=== PATIENT | male | born 1965 | race Caucasian/White ===

== ENCOUNTER 2017-03-10 15:07 | Emergency (ER) | payer BC ==
--- NOTE | 2017-03-10 15:56 | ED ---
General Adult HPI - General Stated complaint: Seizure Source: patient, family, RN notes reviewed, old records reviewed Mode of arrival: EMS Limitations: no limitations - History of Present Illness Initial comments: Chief complaint and history of present illness a 51-year-old male who had a 90 second seizure followed by 5 minutes of postictal. The daughter who is his electrician wiring reports that she gave him a soft drink he was in the washroom she heard a noise she found him having a tonic-clonic type clonic type seizure shaking all over as she described in any fell to floor bumping his head. This whole thing lasted 90 seconds. He was sleepy for 5 minutes afterwards. Back to his self at this time. He does have history of schizophrenia. Last time with the seizure was approximately 3 or 4 years ago. He does take Trileptal and has not apparently missed any doses. Has not been sick with nausea vomiting or diarrhea lately. - Related Data Home Medications Medication Instructions Recorded Confirmed LORazepam [Ativan] 1 mg PO TID PRN 03/10/17 03/10/17 Perphenazine [Trilafon] 8 mg PO BID 03/10/17 03/10/17 Perphenazine [Trilafon] 16 mg PO HS 03/10/17 03/10/17 Sertraline [Zoloft] 50 mg PO DAILY 03/10/17 03/10/17 Previous Rx's Medication Instructions Recorded OXcarbazepine [Trileptal] 450 mg PO BID #45 tab 08/24/15 Allergies Allergy/AdvReac Type Severity Reaction Status Date / Time No Known Allergies Allergy Verified 03/10/17 15:40 Review of Systems ROS Statement: Those systems with pertinent positive or pertinent negative responses have been documented in the HPI. Review of systems patient denies headache or visual acuity changes no neck pain no chest pain or shortness of breath no GI/ problems. Emotionally the patient 's very labile and crying immediately and states she does not know why. His daughter who takes care of him at home states he does this often, because of his schizophrenia. All systems reviewed. Past medical problems significant for GERD, prostate disorder and seizure disorder. He takes Trileptal. Patient also has schizophrenia. He takes Artane and perphenazine. The patient's surgeries are none. Family history mother had breast lung cancer. Patient denies ALLERGIES nonsmoker nondrinker. ROS Other: All systems not noted in ROS Statement are negative. Past Medical History Past Medical History: GERD/Reflux, Prostate Disorder, Seizure Disorder History of Any Multi-Drug Resistant Organisms: None Reported Past Surgical History: No Surgical Hx Reported Past Psychological History: Bipolar, Schizophrenia Smoking Status: Former smoker Past Alcohol Use History: Occasional Past Drug Use History: Unable to Obtain General Exam - General Exam Comments Initial Comments: General: The patient is awake and alert, in no distress, and does not appear acutely ill. Patient had a 92nd seizure prior to arrival. Alert and back to his normal self now. He does have schizophrenia and starts crying without any reason which is common for him. Vital signs show temperature 98.5 pulse 104 story rate 20 pulse ox 96% room air blood pressure 151/74. Eye: Pupils are equal, round and reactive to light, extra-ocular movements are intact ; there is normal conjunctiva bilaterally. No signs of icterus. Ears, nose, mouth and throat: There are moist mucous membranes and no oral lesions. Small bruise over her right eye. Neck: The neck is supple, there is no tenderness. Cardiovascular: There is a regular rate and rhythm. No murmur, rub or gallop is appreciated. Respiratory: Lungs are clear to auscultation, respirations are non-labored, breath sounds are equal. No wheezes, stridor, rales, or rhonchi. Gastrointestinal: Soft, non-distended, non-tender abdomen without masses or organomegaly noted. There is no rebound or guarding present. No CVA tenderness. Bowel sounds are unremarkable. Back: There is no tenderness to palpation in the midline. There is no obvious deformity. No rashes noted. Musculoskeletal: Normal ROM, no tenderness, There is no pedal edema. There is no calf tenderness or swelling. Sensation intact. Pulses equal bilaterally 2+. Neurological: CN II-XII intact, There are no obvious motor or sensory deficits. Coordination appears grossly intact. Speech is normal. Skin: Skin is warm and dry and no rashes or lesions are noted. Psychiatric: History of schizophrenia, very labile mood and affect. No change per daughter who takes care of him. Limitations: no limitations Course Vital Signs 03/10/17 03/10/17 15:11 16:33 Temperature 98.5 F Pulse Rate 104 H 74 Respiratory 20 18 Rate Blood Pressure 151/74 127/77 O2 Sat by Pulse 96 95 Oximetry Medical Decision Making - Medical Decision Making Seizure making. Patient's CAT scan was reviewed by radiologist as negative for any acute pathology. As reported by Dr. Borden. Patient still has breakthrough fits of crying which daughter reports are normal for his health issues. He will be given 1 mg Ativan to help control his anxiety. She will call the family doctor tomorrow. The Trileptal is a send out. She was told to call for the final lab results in the next several days to see if the Trileptal level is within normal limits and whatever alterations been be necessary to be done either doctor. Disposition Clinical Impression: Generalized seizure Disposition: HOME SELF-CARE Condition: Stable Additional Instructions: call the emergency room follow-up nurse for the Trileptal level in 2 days. Follow-up with his family physician, call tomorrow for an appointment. Referrals: Chele Marcus III, MD [Primary Care Provider] - 1-2 days Time of Disposition: 18:07
--- NOTE | 2017-03-10 16:33 | CT ---
EXAMINATION TYPE: CT brain wo con DATE OF EXAM: 03/10/2017 COMPARISON: 03/18/2013 HISTORY: Seizure today. History of seizures. CT DLP: 1011.00 mGycm. Automated Exposure Control for Dose Reduction was Utilized. TECHNIQUE: CT scan of the head is performed without contrast. FINDINGS: Ventricles of normal size. There is no mass effect nor midline shift. There is no sign of intracranial hemorrhage. The calvarium is intact. Negative CT scan of the brain. No change compared to old exam..
[2017-03-10 16:34] VITALS: RESP 18
[2017-03-10] MEDS ORDERED: LORazepam 2 MG/ML SYRINGE IV STA (18:04)
[2017-03-10 18:17] VITALS: BP 136/87; PULSE 80; TEMP 98.6
== END 2017-03-10 19:03 | disposition home or self-care (01) ==
LOC: EC 15:07
DX: G40.409 Other generalized epilepsy and epileptic syndromes, not intractable, without status epilepticus (principal); F20.9 Schizophrenia, unspecified; Z87.891 Personal history of nicotine dependence; Z79.899 Other long term (current) drug therapy
CPT/HCPCS: 99285; 96374; 70450; J2060

== ENCOUNTER 2017-12-29 12:20 | Inpatient (IN) | payer BC ==
--- NOTE | 2017-12-29 12:42 | ED ---
Seizure HPI - General Stated Complaint: seizure Time Seen by Provider: 12/29/17 12:27 Source: family, EMS, RN notes reviewed Mode of arrival: EMS - History of Present Illness Initial Comments: This is a 52-year-old male with a history of seizure disorder who apparently was found unresponsive he has bathroom at home. He was in what appear to be a postictal state for about 5 minutes EMS was called he started coming out of it was somewhat combative and uncooperative but has become more cooperative as time progresses he is given his medications by his daughter who is present at this time he has not missed any medications no reports of fevers chills nausea vomiting sweats he did has some apparent nasal pain as well as headache MD Complaint: possible seizure - Related Data Home Medications Medication Instructions Recorded Confirmed LORazepam [Ativan] 1 mg PO TID PRN 03/10/17 07/04/17 Perphenazine [Trilafon] 8 mg PO BID 03/10/17 07/04/17 Perphenazine [Trilafon] 16 mg PO HS 03/10/17 07/04/17 Sertraline [Zoloft] 50 mg PO DAILY 03/10/17 07/04/17 diphenhydrAMINE [Benadryl] 50 mg PO HS PRN 07/04/17 07/04/17 Previous Rx's Medication Instructions Recorded OXcarbazepine [Trileptal] 450 mg PO BID #45 tab 08/24/15 Hydrocodone/Acetaminophen [[place] 1 tab PO Q6HR PRN #20 tab 07/04/17 5-325] Allergies Allergy/AdvReac Type Severity Reaction Status Date / Time No Known Allergies Allergy Verified 12/29/17 12:30 Review of Systems ROS Statement: Those systems with pertinent positive or pertinent negative responses have been documented in the HPI. ROS Other: All systems not noted in ROS Statement are negative. Past Medical History Past Medical History: GERD/Reflux, Prostate Disorder, Seizure Disorder History of Any Multi-Drug Resistant Organisms: None Reported Past Surgical History: No Surgical Hx Reported Past Psychological History: Bipolar, Schizophrenia Smoking Status: Former smoker Past Alcohol Use History: None Reported Past Drug Use History: Unable to Obtain General Exam - General Exam Comments Initial Comments: Physical well-developed well-nourished awake alert oriented 3 at this time General appearance: alert, in no apparent distress Head exam: Present: atraumatic, normocephalic, normal inspection Eye exam: Present: normal appearance, PERRL, EOMI. Absent: scleral icterus, conjunctival injection, periorbital swelling ENT exam: Present: normal exam, mucous membranes moist Neck exam: Present: normal inspection, full ROM. Absent: tenderness, meningismus, lymphadenopathy Respiratory exam: Present: normal lung sounds bilaterally. Absent: respiratory distress, wheezes, rales, rhonchi, stridor Cardiovascular Exam: Present: regular rate, normal rhythm, normal heart sounds. Absent: systolic murmur, diastolic murmur, rubs, gallop, clicks GI/Abdominal exam: Present: soft, normal bowel sounds. Absent: distended, tenderness, guarding, rebound, rigid Extremities exam: Present: normal inspection, full ROM, normal capillary refill. Absent: tenderness, pedal edema, joint swelling, calf tenderness Back exam: Present: normal inspection Neurological exam: Present: alert, oriented X3, CN II-XII intact Psychiatric exam: Present: normal affect, normal mood Skin exam: Present: warm, dry, intact, normal color. Absent: rash Course Vital Signs 12/29/17 12/29/17 12/29/17 12:21 13:00 13:39 Temperature 98.3 F Pulse Rate 127 H 110 H 117 H Respiratory 18 18 22 Rate Blood Pressure 143/68 117/83 193/113 O2 Sat by Pulse 98 98 91 L Oximetry 12/29/17 14:00 Temperature Pulse Rate 122 H Respiratory 18 Rate Blood Pressure 140/75 O2 Sat by Pulse 98 Oximetry - Reevaluation(s) Reevaluation #1: 12/29/17 13:48 The patient was noted to have a full body tonic-clonic seizure lasting about 1 minute. I did witness it. Patient did have a right lateral gaze pain most activities on the left side. Patient was given IV Ativan. CAT scan was reviewed no acute findings there. Reevaluation #2: 12/29/17 13:50 Repeat EKG after the seizure heart rate 111. 122 QRS 86 QT since QTC 3:30/[address] configuration Reevaluation #3: 12/29/17 15:59 Reevaluation patient he is more awake and alert at this time still somewhat groggy. He will be admitted for observation for recurrent seizures neurology will be consulted his physician is Dr. Randall Mullally I did discuss the case with him. Medical Decision Making - Lab Data Result diagrams: 12/29/17 12:40 12/29/17 12:40 Lab Results 12/29/17 12/29/17 12/29/17 Range/Units 12:25 12:40 12:40 WBC (3.8-10.6) k/uL RBC (4.30-5.90) m/uL Hgb (13.0-17.5) gm/dL Hct (39.0-53.0) % MCV (80.0-100.0) fL MCH (25.0-35.0) pg MCHC (31.0-37.0) g/dL RDW (11.5-15.5) % Plt Count (150-450) k/uL Neutrophils % % Lymphocytes % % Monocytes % % Eosinophils % % Basophils % % Neutrophils # (1.3-7.7) k/uL Lymphocytes # (1.0-4.8) k/uL Monocytes # (0-1.0) k/uL Eosinophils # (0-0.7) k/uL Basophils # (0-0.2) k/uL Sodium 141 (137-145) mmol/L Potassium 5.2 H (3.5-5.1) mmol/L Chloride 103 (98-107) mmol/L Carbon Dioxide 15 L (22-30) mmol/L Anion Gap 23 mmol/L BUN 15 (9-20) mg/dL Creatinine 0.87 (0.66-1.25) mg/dL Est GFR (CKD-EPI)AfAm >90 (>60 ml/min/1.73 sqM) Est GFR (CKD-EPI)NonAf >90 (>60 ml/min/1.73 sqM) Glucose 179 H (74-99) mg/dL POC Glucose (mg/dL) 150 H (75-99) mg/dL POC Glu Satellite Manager ID Jorge Lloyd Calcium 10.0 (8.4-10.2) mg/dL Magnesium 2.4 H (1.6-2.3) mg/dL Total Bilirubin 0.9 (0.2-1.3) mg/dL AST 48 (17-59) U/L ALT 37 (21-72) U/L Alkaline Phosphatase 103 (38-126) U/L Ammonia (<30) umol/L Total Creatine Kinase 79 (55-170) U/L CK-MB (CK-2) 0.2 (0.0-2.4) ng/mL CK-MB (CK-2) Rel Index 0.3 Troponin I <0.012 (0.000-0.034) ng/mL Total Protein 8.1 (6.3-8.2) g/dL Albumin 4.9 (3.5-5.0) g/dL Urine Color Urine Appearance (Clear) Urine pH (5.0-8.0) Ur Specific [place] (1.001-1.035) Urine Protein (Negative) Urine Glucose (UA) (Negative) Urine Ketones (Negative) Urine Blood (Negative) Urine Nitrite (Negative) Urine Bilirubin (Negative) Urine Urobilinogen (<2.0) mg/dL Ur Leukocyte Esterase (Negative) Urine RBC (0-5) /hpf Urine WBC (0-5) /hpf Ur Squamous Epith Cells (0-4) /hpf Hyaline Casts (0-2) /lpf Urine Mucus (None) /hpf Urine Sperm (None) /hpf Urine Opiates Screen (NotDetected) Ur Oxycodone Screen (NotDetected) Urine Methadone Screen (NotDetected) Ur Propoxyphene Screen (NotDetected) Ur Barbiturates Screen (NotDetected) U Tricyclic Antidepress (NotDetected) Ur Phencyclidine Scrn (NotDetected) Ur Amphetamines Screen (NotDetected) U Methamphetamines Scrn (NotDetected) U Benzodiazepines Scrn (NotDetected) Urine Cocaine Screen (NotDetected) U Marijuana (THC) Screen (NotDetected) Serum Alcohol <10 mg/dL 12/29/17 12/29/17 12/29/17 Range/Units 12:40 13:45 14:44 WBC 12.5 H (3.8-10.6) k/uL RBC 5.75 (4.30-5.90) m/uL Hgb 15.6 (13.0-17.5) gm/dL Hct 48.9 (39.0-53.0) % MCV 85.0 (80.0-100.0) fL MCH 27.2 (25.0-35.0) pg MCHC 32.0 (31.0-37.0) g/dL RDW 13.2 (11.5-15.5) % Plt Count 365 (150-450) k/uL Neutrophils % 79 % Lymphocytes % 15 % Monocytes % 5 % Eosinophils % 0 % Basophils % 0 % Neutrophils # 9.9 H (1.3-7.7) k/uL Lymphocytes # 1.9 (1.0-4.8) k/uL Monocytes # 0.6 (0-1.0) k/uL Eosinophils # 0.0 (0-0.7) k/uL Basophils # 0.0 (0-0.2) k/uL Sodium (137-145) mmol/L Potassium (3.5-5.1) mmol/L Chloride (98-107) mmol/L Carbon Dioxide (22-30) mmol/L Anion Gap mmol/L BUN (9-20) mg/dL Creatinine (0.66-1.25) mg/dL Est GFR (CKD-EPI)AfAm (>60 ml/min/1.73 sqM) Est GFR (CKD-EPI)NonAf (>60 ml/min/1.73 sqM) Glucose (74-99) mg/dL POC Glucose (mg/dL) (75-99) mg/dL POC Glu Satellite Manager ID Calcium (8.4-10.2) mg/dL Magnesium (1.6-2.3) mg/dL Total Bilirubin (0.2-1.3) mg/dL AST (17-59) U/L ALT (21-72) U/L Alkaline Phosphatase (38-126) U/L Ammonia 203 H (<30) umol/L Total Creatine Kinase (55-170) U/L CK-MB (CK-2) (0.0-2.4) ng/mL CK-MB (CK-2) Rel Index Troponin I (0.000-0.034) ng/mL Total Protein (6.3-8.2) g/dL Albumin (3.5-5.0) g/dL Urine Color Yellow Urine Appearance Clear (Clear) Urine pH 6.5 (5.0-8.0) Ur Specific [place] 1.020 (1.001-1.035) Urine Protein 2+ H (Negative) Urine Glucose (UA) Negative (Negative) Urine Ketones 2+ H (Negative) Urine Blood Small H (Negative) Urine Nitrite Negative (Negative) Urine Bilirubin Negative (Negative) Urine Urobilinogen <2.0 (<2.0) mg/dL Ur Leukocyte Esterase Negative (Negative) Urine RBC 12 H (0-5) /hpf Urine WBC 2 (0-5) /hpf Ur Squamous Epith Cells 1 (0-4) /hpf Hyaline Casts 9 H (0-2) /lpf Urine Mucus Occasional H (None) /hpf Urine Sperm Many H (None) /hpf Urine Opiates Screen Not Detected (NotDetected) Ur Oxycodone Screen Not Detected (NotDetected) Urine Methadone Screen Not Detected (NotDetected) Ur Propoxyphene Screen Not Detected (NotDetected) Ur Barbiturates Screen Not Detected (NotDetected) U Tricyclic Antidepress Not Detected (NotDetected) Ur Phencyclidine Scrn Not Detected (NotDetected) Ur Amphetamines Screen Not Detected (NotDetected) U Methamphetamines Scrn Not Detected (NotDetected) U Benzodiazepines Scrn Detected H (NotDetected) Urine Cocaine Screen Not Detected (NotDetected) U Marijuana (THC) Screen Detected H (NotDetected) Serum Alcohol mg/dL - EKG Data -: EKG Interpreted by [place] EKG shows normal: sinus rhythm (Sinus rhythm sinus tachycardia rate 122. Interval 160 QRS duration 60 QT since QTC of 336/478 artifact is present) - Radiology Data Radiology results: report reviewed (I did review the imaging and report no acute findings.), image reviewed Disposition Clinical Impression: Generalized seizure, Intractable seizure disorder Disposition: ADMITTED IP TO THIS [facility] Condition: Stable Referrals: Chele Marcus III, MD [Primary Care Provider] - 1-2 days
[2017-12-29 12:44] LABS: Glucose,Whole Blood 150 mg/dL (75-99)
[2017-12-29 12:55] LABS: Basophils % (A) 0 %; Eosinophils % (A) 0 %; HCT 48.9 % (39.0-53.0); HGB 15.6 gm/dL (13.0-17.5); Lymphocytes # (A) 1.9 k/uL (1.0-4.8); Lymphocytes % (A) 15 %; MCH 27.2 pg (25.0-35.0); Mean Platelet Volume 7.2; Monocytes # (A) 0.6 k/uL (0-1.0); Monocytes % (A) 5 %; Neutrophils # (A) 9.9 k/uL (1.3-7.7); Neutrophils % (A) 79 %; Platelet Count 365 k/uL (150-450); RBC 5.75 m/uL (4.30-5.90); RDW 13.2 % (11.5-15.5); WBC 12.5 k/uL (3.8-10.6)
[2017-12-29 13:04] LABS: Albumin 4.9 g/dL (3.5-5.0); Alcohol <10 mg/dL; Anion Gap 23 mmol/L; Carbon Dioxide 15 mmol/L (22-30); Chloride 103 mmol/L (98-107); Glucose 179 mg/dL (74-99); Sodium 141 mmol/L (137-145); Total Bilirubin 0.9 mg/dL (0.2-1.3); Total Protein 8.1 g/dL (6.3-8.2)
[2017-12-29 13:05] LABS: ALT 37 U/L (21-72); AST 48 U/L (17-59); Alkaline Phosphatase 103 U/L (38-126); Blood Urea Nitrogen 15 mg/dL (9-20); Potassium 5.2 mmol/L (3.5-5.1)
[2017-12-29 13:06] LABS: Magnesium 2.4 mg/dL (1.6-2.3)
[2017-12-29 13:22] LABS: Creatine Kinase 79 U/L (55-170)
[2017-12-29 13:34] LABS: Creatine Kinase MB 0.2 ng/mL (0.0-2.4); Troponin I <0.012 ng/mL (0.000-0.034)
--- NOTE | 2017-12-29 13:38 | CT ---
EXAMINATION TYPE: CT brain wo con DATE OF EXAM: 12/29/2017 COMPARISON: Previous study dated 03/10/2017 HISTORY: Seizure CT DLP: 1242 mGycm Automated exposure control for dose reduction was used. FINDINGS: Central structures are midline. There is no evidence of hydrocephalus. No acute focal lesion, mass ef fect or midline shift is seen. I do not see evidence of intracranial blood. Visualized portions of the paranasal sinuses and mastoids are clear. The bony calvarium is intact. IMPRESSION: NORMAL CT SCAN OF THE BRAIN.
--- NOTE | 2017-12-29 13:45 | XR ---
EXAMINATION TYPE: XR chest 2V DATE OF EXAM: 12/29/2017 HISTORY: cough. REFERENCE: Previous study dated 03/18/2013. FINDINGS: The study is somewhat rotated. The lungs are clear. Pleural space are clear. The heart is n ot enlarged. Note is made of a previous fracture of the neck of the right humerus. There is an interval change. IMPRESSION: 1. NO ACUTE INTRATHORACIC ABNORMALITY. 2. INTERVAL HEALED FRACTURE OF THE NECK OF THE RIGHT HUMERUS
[2017-12-29] MEDS ORDERED: LORazepam 2 MG/ML INJ IV STA (13:50)
[2017-12-29 15:17] LABS: Appearance,Urine Clear (Clear); Bilirubin,Urine Negative (Negative); Blood,Urine Small (Negative); Color,Urine Yellow; Glucose,Urine (UA) Negative (Negative); Hyaline Casts,Urine 9 /lpf (0-2); Ketones,Urine 2+ (Negative); Leukocyte Esterase,Urine Negative (Negative); Mucus,Urine Occasional /hpf; Nitrite,Urine Negative (Negative); PH, Urine 6.5 (5.0-8.0); Protein,Urine 2+ (Negative); RBC,Urine 12 /hpf (0-5); Sperm,Urine Many /hpf; Squamous Epithelial Cell,Urine 1 /hpf (0-4); Urobilinogen,Urine <2.0 mg/dL (<2.0); WBC,Urine 2 /hpf (0-5)
[2017-12-29 15:19] LABS: Amphetamine Screen,Urine Not Detected (NotDetected); Barbiturate Screen,Urine Not Detected (NotDetected); Benzodiazepines Screen,Urine Detected (NotDetected); Cocaine Screen,Urine Not Detected (NotDetected); Methadone Screen, Urine Not Detected (NotDetected); Opiate Screen,Urine Not Detected (NotDetected); Oxycodone Screen, Urine Not Detected (NotDetected); Phencyclidine Screen,Urine Not Detected (NotDetected); Tricyclic Antidepressant,Urine Not Detected (NotDetected); Urn Cannabinoid Scrn Detected (NotDetected)
[2017-12-29] MEDS ORDERED: ACETAMINOPHEN TAB 500 MG TAB PO STA (15:57)
[2017-12-29] MEDS ORDERED: NALOXONE 0.4 MG/ML 1 ML VIAL IV PRN (16:01)
[2017-12-29] MEDS ORDERED: diphenhydrAMINE 50 MG CAP PO PRN (16:04)
[2017-12-29 17:44] VITALS: BMI 20.8
[2017-12-29] MEDS: PERPHENAZINE 4 MG TAB PO SCH ×2 (18:48→21:16)
--- NOTE | 2017-12-29 19:30 | HP ---
HISTORY AND PHYSICAL CHIEF COMPLAINT: 52-year-old white male, found unresponsive in his bedroom at home. Possible seizure disorder. Postictal state for 5 minutes, combative, uncooperative. No nausea, vomiting, sweats, diaphoresis, nasal pain, headache. HOME MEDICATIONS: Include Ativan, Trilafon, Zoloft, Benadryl. ALLERGIES: Negative. REVIEW OF SYSTEM: 14 point review of systems otherwise negative. PAST MEDICAL HISTORY: Seizure disorder, prostate disorder, GERD, bipolar and schizophrenia. SOCIAL HISTORY: Former smoker. No alcohol. No illicit drugs. PHYSICAL EXAM: Well developed, well nourished, alert and oriented times three. CARDIOVASCULAR: S1, S2. LUNGS: Transmitted upper sounds. NECK: Supple. No mass. No organomegaly. Ophthalmologic pupils equal, round and react to light and accommodation. GI soft, nontender. Back normal inspection. Neurologic: Cranial nerves 2-12 are intact. SKIN: Warm, dry, intact. PHYSICAL EXAMINATION: Blood pressure is 190s over 60s to 113, pulse is 117 to 127, temp 98.3, respirations 18- 22. EKG nonspecific ST changes. Sodium 141, potassium 5.2. Negative troponin. White count 12. Ammonia level is over 203, should be less than 30. ASSESSMENT: 1. Generalized seizure, irretractable seizure disorder. 2. Hyperammonia level with unclear etiology. Await for neurologic and Gastroenterology consultation. Possible will need to be given. MMODL / IJN: [id number] /
[2017-12-29] MEDS: SODIUM CHLORIDE 0.9% 1,000 ML IV SCH (21:15)
[2017-12-29] MEDS: OXcarbazepine 150 MG TAB PO SCH (21:17)
--- NOTE | 2017-12-29 21:25 | P.CNNES ---
History of Present Illness Consult date: 12/29/17 Reason for Consult: Patient admitted with seizure disorder. History of Present Illness: This patient is a 52-year-old right-handed white male who apparently was in his usual state of health earlier in the day. According to his daughter who was at bedside he was upstairs using the bathroom when apparently fell off the commode. The daughter was downstairs and apparently there was a broken pipe in the bathroom causing flooding. She went up to find out what was going on and found out that the patient had fallen off the commode and had a seizure. Patient was very confused and disoriented when the daughter found him on the ground. Initially he was unresponsive but slowly came to and appeared to be postictal for about 5 minutes. EMS was called to the home any continued to be somewhat combative and uncooperative. He did not bite his tongue but did bite his lip. He was transported by EMS to the emergency room at [facility] for further evaluation. He was seen in the ER by Dr. Waters. He was sent for a computed tomography scan of the brain which was reported normal. Patient has a history of underlying seizure disorder for which she has been taking Trileptal. He has been on 450 mg by mouth twice a day. He also has a history of underlying depression and bipolar disorder. He also has a history of schizophrenia which was one of the reasons for him to use the Trileptal as well. The daughter states she is usually able to follow him when he takes his medications. She thinks he has been taking his Trileptal on a regular basis. We did order a stat Trileptal level this evening however we will give him an extra 300 mg pill today and recheck his Trileptal levels tomorrow morning. We would recommend the patient undergo an EEG as well as MRI of the brain for further evaluation of seizure disorder. We did review the results of the CAT scan with the patient and the daughter at bedside today. They are aware that this was normal. Still unclear why he may have had breakthrough seizures but one possibility could be subject therapeutic Trileptal blood level. We will continue with seizure precautions with the patient. So overall prognosis at this time remains guarded. Neurology is now been consulted for further evaluation and recommendations. Review of Systems Constitutional: Denies chills, Denies fever Eyes: denies blurred vision, denies pain Ears, nose, mouth and throat: Denies headache, Denies sore throat Cardiovascular: Denies chest pain, Denies shortness of breath Respiratory: Denies cough Gastrointestinal: Denies abdominal pain, Denies diarrhea, Denies nausea, Denies vomiting Musculoskeletal: Denies myalgias Integumentary: Denies pruritus, Denies rash Neurological: Reports balance difficulties, Reports change in mentation, Reports confusion, Reports convulsions, Reports hearing difficulties, Reports memory loss, Reports seizures, Denies numbness, Denies weakness Psychiatric: Reports confusion, Reports memory loss, Denies anxiety, Denies depression Endocrine: Denies fatigue, Denies weight change Past Medical History Past Medical History: GERD/Reflux, Prostate Disorder, Seizure Disorder History of Any Multi-Drug Resistant Organisms: None Reported Past Surgical History: No Surgical Hx Reported Past Psychological History: Bipolar, Schizophrenia Smoking Status: Former smoker Past Alcohol Use History: None Reported Past Drug Use History: Unable to Obtain Medications and Allergies Home Medications Medication Instructions Recorded Confirmed Type OXcarbazepine [Trileptal] 450 mg PO BID #45 tab 08/24/15 12/29/17 Rx LORazepam [Ativan] 1 mg PO TID PRN 03/10/17 12/29/17 History Perphenazine [Trilafon] 8 mg PO BID 03/10/17 12/29/17 History Perphenazine [Trilafon] 16 mg PO HS 03/10/17 12/29/17 History Sertraline [Zoloft] 50 mg PO DAILY 03/10/17 12/29/17 History Lisinopril [Zestril] 20 mg PO DAILY 12/29/17 12/29/17 History Allergies Allergy/AdvReac Type Severity Reaction Status Date / Time No Known Allergies Allergy Verified 12/29/17 16:21 Physical Examination - Vital Signs Vital Signs: Vital Signs Temp Pulse Resp BP Pulse Ox 12/29/17 16:59 98.8 F 78 18 121/83 97 12/29/17 16:01 82 18 129/76 94 L 12/29/17 15:30 78 18 117/81 98 12/29/17 15:00 82 18 137/91 98 12/29/17 14:00 122 H 18 140/75 98 12/29/17 13:39 117 H 22 193/113 91 L 12/29/17 13:00 110 H 18 117/83 98 12/29/17 12:21 98.3 F 127 H 18 143/68 98 Intake and Output 12/29/17 12/29/17 12/29/17 06:59 14:59 22:59 Other: Weight 61.235 kg 61.235 kg - Constitutional General appearance: average body habitus, cooperative - EENT EENT: PERRL, mucous membranes moist - Respiratory Respiratory: lungs clear, normal breath sounds - Cardiovascular Cardiovascular: regular rate, normal S1, normal S2 Extremities: no peripheral edema bilaterally - Gastrointestinal Gastrointestinal: normoactive bowel sounds - Integumentary Integumentary: normal - Neurologic Cranial nerve examination: PERRL, EOMI, VFF, V1/V2/V3 grossly intact, face symmetric, tongue midline, intact gag reflex, intact corneal reflex, normal palatal elevation Speech examination: intact Sensorimotor examination: intact Motor examination - right side: 4/5: biceps, triceps, wrist flexion, wrist extension, homicide detective, hip flexors, knee extensors, dorsiflexion, toe extension (EHL) , plantarflexion Motor examination - left side: 4/5: biceps, triceps, wrist flexion, wrist extension, homicide detective, hip flexors, knee extensors, dorsiflexion, toe extension (EHL) , plantarflexion Detailed sensory examination: intact Reflex and gait examination: intact Reflexes: 1+: ankle, bicep, knee, tricep - Musculoskeletal Musculoskeletal: no pain - Psychiatric Psychiatric: mood/affect appropriate, cooperative Results - Laboratory Findings CBC and BMP: 12/29/17 12:40 12/29/17 12:40 Abnormal Lab Findings: Abnormal Labs 12/29/17 12/29/17 12/29/17 12:25 12:40 12:40 WBC 12.5 H Neutrophils # 9.9 H Potassium 5.2 H Carbon Dioxide 15 L Glucose 179 H POC Glucose (mg/dL) 150 H Magnesium 2.4 H Ammonia Urine Protein Urine Ketones Urine Blood Urine RBC Hyaline Casts Urine Mucus Urine Sperm U Benzodiazepines Scrn U Marijuana (THC) Screen 12/29/17 12/29/17 13:45 14:44 WBC Neutrophils # Potassium Carbon Dioxide Glucose POC Glucose (mg/dL) Magnesium Ammonia 203 H Urine Protein 2+ H Urine Ketones 2+ H Urine Blood Small H Urine RBC 12 H Hyaline Casts 9 H Urine Mucus Occasional H Urine Sperm Many H U Benzodiazepines Scrn Detected H U Marijuana (THC) Screen Detected H Assessment and Plan (1) Complex partial epileptic seizure Current Visit: Yes Status: Acute Code(s): G40.209 - LOCAL-REL SYMPTC EPI W CMPLX PRT SEIZ,NOT NTRCT,W/O STAT EPI SNOMED Code(s): 566343229 (2) Chronic schizophrenia Current Visit: No Status: Chronic Code(s): F20.9 - SCHIZOPHRENIA, UNSPECIFIED SNOMED Code(s): 88084432 (3) Bipolar disorder Current Visit: Yes Status: Acute Code(s): F31.9 - BIPOLAR DISORDER, UNSPECIFIED SNOMED Code(s): 41794055 (4) Hyperammonemia Current Visit: Yes Status: Acute Code(s): E72.20 - DISORDER OF UREA CYCLE METABOLISM, UNSPECIFIED SNOMED Code(s): 7484556 Plan: This patient is a 52-year-old male with known history of schizophrenia and bipolar disorder as well as seizure disorder. He was noted this morning to have had a seizure and collapsed in his bathroom. Daughter was at home and was able to assist him immediately. He was postictal following this seizure event. He was attended to immediately by EMS. He was transported to the emergency room at [facility] for further evaluation. Patient had a second seizure in the ER which was witnessed by Dr. Waters lasting 1 minute in duration. It appeared to be a generalized tonic-clonic seizure. Patient is on Trileptal for treatment of his schizophrenia which also his antiepileptic medication. We have ordered a stat Trileptal blood level today for further evaluation. We have recommended an extra dose of Trileptal 300 mg to be given to him by mouth. He is to continue on his current dose of Trileptal 450 mg by mouth twice a day. We will obtain a Trileptal blood level tomorrow morning. For further evaluation of seizure disorder we would recommend a routine EEG as well as MRI of the brain. Case was discussed at length today with the patient' s daughter bedside. All of her questions were answered. She is aware of her father's guarded condition. We will continue close neurological follow-up the patient during this admission. Time with Patient: Greater than 30
[2017-12-29] MEDS: HYDROcodone/APAP 5-325MG 1 EACH TAB PO PRN (21:30)
[2017-12-29] MEDS: LORazepam 1 MG TAB PO PRN (22:52)
[2017-12-29] MEDS ORDERED: OXcarbazepine 300 MG TAB PO ONE (23:00)
[2017-12-30] MEDS: HYDROcodone/APAP 5-325MG 1 EACH TAB PO PRN ×3 (04:26→17:26)
[2017-12-30] MEDS: PERPHENAZINE 4 MG TAB PO SCH ×3 (06:06→21:52)
[2017-12-30] MEDS: OXcarbazepine 150 MG TAB PO SCH ×2 (08:25→21:53)
[2017-12-30] MEDS: SERTRALINE 50 MG TAB PO SCH (08:25)
[2017-12-30 09:22] LABS: Basophils % (A) 0 %; Eosinophils % (A) 0 %; HCT 42.2 % (39.0-53.0); HGB 14.2 gm/dL (13.0-17.5); Lymphocytes # (A) 0.7 k/uL (1.0-4.8); Lymphocytes % (A) 7 %; MCH 28.8 pg (25.0-35.0); MCHC 33.7 g/dL (31.0-37.0); MCV 85.4 fL (80.0-100.0); Mean Platelet Volume 6.7; Monocytes # (A) 0.5 k/uL (0-1.0); Monocytes % (A) 4 %; Neutrophils # (A) 9.9 k/uL (1.3-7.7); Neutrophils % (A) 88 %; Platelet Count 258 k/uL (150-450); RBC 4.94 m/uL (4.30-5.90); RDW 13.2 % (11.5-15.5); WBC 11.2 k/uL (3.8-10.6)
[2017-12-30 09:35] LABS: ALT 29 U/L (21-72); AST 27 U/L (17-59); Albumin 4.1 g/dL (3.5-5.0); Alkaline Phosphatase 70 U/L (38-126); Anion Gap 16 mmol/L; Blood Urea Nitrogen 14 mg/dL (9-20); Calcium 9.2 mg/dL (8.4-10.2); Carbon Dioxide 21 mmol/L (22-30); Chloride 103 mmol/L (98-107); Glucose 164 mg/dL (74-99); Potassium 3.6 mmol/L (3.5-5.1); Sodium 140 mmol/L (137-145); Total Bilirubin 0.6 mg/dL (0.2-1.3); Total Protein 6.8 g/dL (6.3-8.2)
[2017-12-30] MEDS: LORazepam 1 MG TAB PO PRN (11:17)
[2017-12-30] MEDS ORDERED: LORazepam 2 MG/ML INJ IV PRN (12:46)
--- NOTE | 2017-12-30 16:45 | MR ---
EXAMINATION TYPE: MR brain wo/w con DATE OF EXAM: 12/30/2017 COMPARISON: CT brain from yesterday HISTORY: Recurrent seizures TECHNIQUE: Multiplanar, multisequence images of the brain and brainstem is performed without and with IV contras t, utilizing 6 mL intravenous Gadavist . FINDINGS: Diffusion weighted images demonstrate no evidence of a recent infarct or other diffusion ab normality. There is no extra-axial fluid collection or significant white matter signal abnormality. The ventricular system and cisternal spaces are normal in size and appearance. The brain volume is age appropriate. T2 coronal weighted images show hippocampal gyri to appear symmetric and felt within normal limits. Midline structures demonstrate normal morphology. The craniocervical junction appears within normal limits. Post contrast images demonstrate no abnormal enhancement. The dural venous sinuses appear pa tent. The visualized sinuses are clear and the globes are intact. IMPRESSION: No suspicious finding is seen to account for patient's symptoms. No suspicious enhancemen t is noted.
[2017-12-30] MEDS: SODIUM CHLORIDE 0.9% 1,000 ML IV SCH (17:26)
--- NOTE | 2017-12-30 22:41 | PN ---
PROGRESS NOTE SUBJECTIVE: This 52-year-old white male, schizophrenia, bipolar disorder. Had some seizures in the emergency room. He is being evaluated for seizures. He is also awaiting GI consultation for high ammonia levels. CARDIOVASCULAR: S1, S2. LUNGS: Clear. GI: Soft. HEMATOLOGIC: Negative Kathie's. PSYCH: Fair mood and affect. ASSESSMENT: Elevated ammonia level, seizure disorder and altered mental status. Continue current treatments. Await for GI consultations. Seizure . MMODL / IJN: [id number] /
--- NOTE | 2017-12-31 00:04 | P.PN ---
Subjective Progress Note Date: 12/30/17 This patient is a 52-year-old male who is being evaluated for seizure disorder. Patient was admitted with possible recent fall in the bathroom due to seizure. He had another episode in the ER yesterday on admission. He is currently being treated for seizure disorder and is taking Trileptal 450 mg twice a day. Seems to be doing fairly well today with no further seizure events reported overnight. His Trileptal blood level is still pending. He was sent for MRI of the brain today for further evaluation of seizure disorder. MRI reveals no suspicious finding and no evidence of any enhancing lesions in the brain. He also had a routine EEG today which was reviewed and reveals only slight slowing with no epileptiform discharges. At this time we will continue the patient on his current dose of Trileptal. We are waiting his blood level to return from the laboratory and his Trileptal dosage will be adjusted appropriately. We've reviewed the results of the MRI of the brain and EEG today with the patient in detail. He does seem to be doing well today with no further seizure-like events reported by nursing staff. We will continue close monitoring of this patient during this admission. His overall prognosis remains guarded. Objective - Vital Signs Vital signs: Vital Signs Temp 99.3 F 12/30/17 15:10 Pulse 86 12/30/17 15:10 Resp 20 12/30/17 15:10 BP 128/75 12/30/17 15:10 Pulse Ox 95 12/30/17 15:10 Intake & Output 12/29/17 12/30/17 12/30/17 18:59 06:59 18:59 Weight 61.235 kg 61.235 kg Other: Voiding Method Toilet Toilet # Voids 1 1 - Exam Physical examination: PHYSICAL EXAMINATION: Patient is resting comfortably in bed. VITAL SIGNS: Blood pressure is [128/75]. Heart rate is [86]. Respiration is [20] . Temperature is [99.3]. HEENT: Head is atraumatic, neck is supple, there were no carotid bruits. CHEST: Lungs are clear to auscultation and percussion. CARDIAC: S1, S2 normal rate and rhythm. There is no murmur. ABDOMEN: Soft and nontender. Bowel sounds are present. EXTREMITIES: There is no pedal edema. Peripheral pulses are present. Neurological examination: Patient's neurological examination is unchanged from yesterday. - Labs CBC & Chem 7: 12/30/17 08:25 12/30/17 08:25 Labs: Abnormal Lab Results - Last 24 Hours (Table) 12/30/17 12/30/17 Range/Units 08:25 08:25 WBC 11.2 H (3.8-10.6) k/uL Neutrophils # 9.9 H (1.3-7.7) k/uL Lymphocytes # 0.7 L (1.0-4.8) k/uL Carbon Dioxide 21 L (22-30) mmol/L Glucose 164 H (74-99) mg/dL Assessment and Plan (1) Complex partial epileptic seizure Current Visit: Yes Status: Acute Code(s): G40.209 - LOCAL-REL SYMPTC EPI W CMPLX PRT SEIZ,NOT NTRCT,W/O STAT EPI SNOMED Code(s): 051883124 (2) Chronic schizophrenia Current Visit: No Status: Chronic Code(s): F20.9 - SCHIZOPHRENIA, UNSPECIFIED SNOMED Code(s): 67656071 (3) Bipolar disorder Current Visit: Yes Status: Acute Code(s): F31.9 - BIPOLAR DISORDER, UNSPECIFIED SNOMED Code(s): 85707313 (4) Hyperammonemia Current Visit: Yes Status: Acute Code(s): E72.20 - DISORDER OF UREA CYCLE METABOLISM, UNSPECIFIED SNOMED Code(s): 7368100 Plan: This patient is a 52-year-old male with known history of schizophrenia and bipolar disorder as well as seizure disorder. He was noted this morning to have had a seizure and collapsed in his bathroom. Daughter was at home and was able to assist him immediately. He was postictal following this seizure event. He was attended to immediately by EMS. He was transported to the emergency room at [facility] for further evaluation. Patient had a second seizure in the ER which was witnessed by Dr. Waters lasting 1 minute in duration. It appeared to be a generalized tonic-clonic seizure. Patient is on Trileptal for treatment of his schizophrenia which also his antiepileptic medication. We have ordered a stat Trileptal blood level today for further evaluation. We have recommended an extra dose of Trileptal 300 mg to be given to him by mouth. He is to continue on his current dose of Trileptal 450 mg by mouth twice a day. We have ordered a Trileptal blood level but this is still pending today. For further evaluation of seizure disorder we would recommend a routine EEG as well as MRI of the brain. Patient was able to complete MRI of the brain today results of which are noted above. MRI fails to reveal any enhancing mass lesions as a cause of his seizure activity. His EEG was reviewed and reveals only mild slowing with no epileptiform discharges. We will continue close neurological follow-up the patient during this admission. His overall prognosis at this time remains guarded.
[2017-12-31] MEDS: PERPHENAZINE 4 MG TAB PO SCH ×3 (08:17→20:43)
[2017-12-31] MEDS: SERTRALINE 50 MG TAB PO SCH (08:17)
[2017-12-31] MEDS: HYDROcodone/APAP 5-325MG 1 EACH TAB PO PRN ×3 (08:17→20:43)
[2017-12-31] MEDS: OXcarbazepine 150 MG TAB PO SCH ×2 (08:17→20:43)
--- NOTE | 2017-12-31 09:55 | P.CONS ---
History of Present Illness - Reason for Consult Consult date: 12/31/17 Hyperammonemia Requesting physician: Randall Sims - History of Present Illness 52-year-old gentleman with a history of underlying bipolar disorder and schizophrenia depression seizure disorder maintained on Trileptal presented with mental status changes possible seizure and elevated serum ammonia level. CT brain reported normal. Upon assessment in the emergency room a witnessed tonic-clonic seizure was seen by the emergency room staff. Patient was given IV Ativan. No further seizure activity since admission. No history of known liver disease. No history of alcohol or intravenous drug abuse/hepatitis B/C. Liver enzymes within normal limits. Denies fever chills abdominal pain. Serum ammonia level 203 on admission and normalized with next blood draw less than 9 without medication intervention. Review of Systems Constitutional: Denies fever, chills, sweats, weight gain, or loss. HEENT: Negative for migraines, blurred vision or loss, earaches, drainage, tinnitus, oral mucosal lesions, dysphagia, or odynophagia. Cardiac: Negative for chest pain, arrhythmias, or palpitation. Respiratory: Negative for shortness of breath, hemoptysis, cough, or sputum production. Gastrointestinal: See HPI for pertinent findings. Genitourinary: Negative for hematuria, urgency, frequency, polyuria, dysuria, or penile discharge. Musculoskeletal: Negative for muscle aches, swelling, arthritis, and arthralgias. Neurologic: History of seizure disorder. Negative for stroke or TIA. Endocrine: Negative for thyroid problems. Skin: Negative for rash or itching. Psychiatric: Schizophrenia bipolar depression. Past Medical History Past Medical History: GERD/Reflux, Prostate Disorder, Seizure Disorder History of Any Multi-Drug Resistant Organisms: None Reported Past Surgical History: No Surgical Hx Reported Past Psychological History: Bipolar, Schizophrenia Smoking Status: Former smoker Past Alcohol Use History: None Reported Past Drug Use History: Unable to Obtain Medications and Allergies Home Medications Medication Instructions Recorded Confirmed Type OXcarbazepine [Trileptal] 450 mg PO BID #45 tab 08/24/15 12/29/17 Rx LORazepam [Ativan] 1 mg PO TID PRN 03/10/17 12/29/17 History Perphenazine [Trilafon] 8 mg PO BID 03/10/17 12/29/17 History Perphenazine [Trilafon] 16 mg PO HS 03/10/17 12/29/17 History Sertraline [Zoloft] 50 mg PO DAILY 03/10/17 12/29/17 History Lisinopril [Zestril] 20 mg PO DAILY 12/29/17 12/29/17 History Allergies Allergy/AdvReac Type Severity Reaction Status Date / Time No Known Allergies Allergy Verified 12/29/17 16:21 Physical Exam Vitals: Vital Signs Temp Pulse Resp BP Pulse Ox 12/31/17 06:55 98.3 F 99 18 133/73 93 L 12/30/17 22:00 97.1 F L 96 16 144/84 94 L 12/30/17 15:10 99.3 F 86 20 128/75 95 Intake and Output 12/30/17 12/31/17 12/31/17 22:59 06:59 14:59 Intake Total 590 590 Balance 590 590 Intake: Intake, IV Titration 90 Amount Sodium Chloride 0.9% 1, 90 000 ml @ 20 mls/hr IV . Q24H [facility] Rx#:[id number] Oral 590 500 Other: Voiding Method Toilet # Voids 2 2 General appearance: The patient is alert, oriented, in no acute distress. HET: Head is normocephalic and atraumatic. Pupils are equal and reactive. Oropharynx is clear without lesions. Neck: Supple without lymphadenopathy. Trachea midline. Heart: S1 S2. Regular rate and rhythm. Lungs: No crackles or wheezes are heard. Abdomen: Soft, nontender, nondistended with bowel sounds. No peritoneal signs. No palpable organomegaly or masses. Extremities: Normal skin color and turgor. No cyanosis, rash, ulceration, clubbing, or edema. Radial and pedal pulses are 2/4 bilaterally. Neurological: No focal deficits. Strength and sensation are grossly intact. Results CBC & Chem 7: 12/30/17 08:25 12/30/17 08:25 Labs: Abnormal Lab Results - Last 24 Hours (Table) 12/30/17 12/30/17 Range/Units 08:25 08:25 WBC 11.2 H (3.8-10.6) k/uL Neutrophils # 9.9 H (1.3-7.7) k/uL Lymphocytes # 0.7 L (1.0-4.8) k/uL Carbon Dioxide 21 L (22-30) mmol/L Glucose 164 H (74-99) mg/dL Assessment and Plan (1) Hyperammonemia Narrative/Plan: 52-year-old gentleman with a history of bipolar depression schizophrenia presented with acute mental status changes with witnessed tonic-clonic seizure activity in the emergency room. No clinical evidence to suggest at this time underlying liver disease as a contributor to the hyperammonemia. Transient hyperammonemia phenomena can be seen with seizure activity especially generalized tonic-clonic also in combination with antipsychotic antiseizure medications. Most often this phenomenon is self-limited and not requiring ammonia lowering management at this time. Hyperammonemia on admission is not necessarily related to adverse outcomes. Current Visit: Yes Status: Acute Code(s): E72.20 - DISORDER OF UREA CYCLE METABOLISM, UNSPECIFIED SNOMED Code(s): 4975735 (2) Chronic schizophrenia Current Visit: No Status: Chronic Code(s): F20.9 - SCHIZOPHRENIA, UNSPECIFIED SNOMED Code(s): 45417507 (3) Bipolar disorder Current Visit: Yes Status: Acute Code(s): F31.9 - BIPOLAR DISORDER, UNSPECIFIED SNOMED Code(s): 46510329 (4) Complex partial epileptic seizure Current Visit: Yes Status: Acute Code(s): G40.209 - LOCAL-REL SYMPTC EPI W CMPLX PRT SEIZ,NOT NTRCT,W/O STAT EPI SNOMED Code(s): 533241114 Plan: 1. Hyperammonemia has resolved. Patient is presently not symptomatic. No further treatment advise at this time. Discharge per medicine and neurology. Thank you for this kind referral and the opportunity to participate in the care of your patient. This consultation was discussed with Dr. Sarmiento. The impression and plan of care have been directed as dictated.
--- NOTE | 2017-12-31 12:39 | EEG ---
ELECTROENCEPHALOGRAM REPORT DATE OF EE12/30/2017 ELECTROENCEPHALOGRAPHIC EXAMINATION REPORT: INDICATION FOR EXAMINATION: This patient is a 52-year-old male being evaluated for seizure disorder and altered mental status. AGE: 52 EEG FINDINGS: A routine 21 channel awake digital EEG recording was accomplished utilizing the 10-20 international system with bipolar and referential montages. The background activity in the most alert resting state consists of a low to medium amplitude, fairly well-developed and well sustained 6-7 Hz activity over the posterior head regions. This posterior rhythm attenuates to eye opening. There is a small amount of low amplitude 18-20 Hz beta activity seen in a generalized fashion throughout the tracing. Hyperventilation was not performed. Photic stimulation at flash frequencies of 2-30 Hz produced a good symmetrical occipital driving response. Excessive muscle activity was noted during the procedure. No epileptiform discharges were seen. IMPRESSION: This EEG is mildly abnormal in a diffuse fashion due to slowing of the EEG background. The EEG failed to reveal any focal, lateralized, or epileptiform abnormalities. Clinical correlation is recommended. MMDAMIEN / LALON: [id number] /
[2017-12-31] MEDS: SODIUM CHLORIDE 0.9% 1,000 ML IV SCH (14:24)
[2017-12-31] MEDS: LIDOCAINE 5% PATCH TOPICAL SCH (16:48)
--- NOTE | 2017-12-31 21:43 | XR ---
EXAMINATION TYPE: XR lumbar spine 2 or 3V DATE OF EXAM: 12/31/2017 CLINICAL HISTORY: pain TECHNIQUE: Three views of the lumbar spine are submitted. COMPARISON: 06/19/2013 FINDINGS: There are 5 lumbar type vertebral bodies identified. The lumbar spine shows satisfactory alignment w ithout evidence of acute fracture or dislocation. Moderate compression fractures involving T12-L4 of uncertain age and/or etiology. No evidence for definite bony retropulsion. Mild degenerative disc dis ease and spondylosis. The overlying soft tissue appears unremarkable. IMPRESSION: Moderate compression fractures involving T12-L4 of uncertain age and/or etiology.
--- NOTE | 2017-12-31 23:29 | PN ---
PROGRESS NOTE SUBJECTIVE: This is a 52-year-old white male with recurrent seizures. He apparently had a fall at home, is complaining of lumbar pain. X-ray of the lumbar spine is being ordered. Recurrent seizures are being treated by neurologist. VITAL SIGNS: Stable, afebrile. CARDIOVASCULAR: S1, S2. LUNGS: Clear. GI saw her for elevated ammonia, is not going to do anything. ASSESSMENT: 1. Seizures, recurrent. 2. Frequent falls. 3. Elevated ammonia levels. 4. Mental disorder. Continue current treatment per Neurology. Possible discharge if cleared by Neurology tomorrow. Lidocaine patch to the lower back. Lumbar x-ray and orthopedic consult. MMODL / IJN: [id number] /
--- NOTE | 2018-01-01 00:12 | P.PN ---
Subjective Progress Note Date: 12/31/17 This patient is a 52-year-old male who is being evaluated for seizure disorder. Patient was admitted with possible recent fall in the bathroom due to seizure. He had another episode in the ER yesterday on admission. He is currently being treated for seizure disorder and is taking Trileptal 450 mg twice a day. Seems to be doing fairly well today with no further seizure events reported overnight. His Trileptal blood level is still pending. He was sent for MRI of the brain today for further evaluation of seizure disorder. MRI reveals no suspicious finding and no evidence of any enhancing lesions in the brain. He also had a routine EEG today which was reviewed and reveals only slight slowing with no epileptiform discharges. At this time we will continue the patient on his current dose of Trileptal. We are waiting his blood level to return from the laboratory and his Trileptal dosage will be adjusted appropriately. We've reviewed the results of the MRI of the brain and EEG today with the patient and his who was at bedside in detail today. He does seem to be doing well today with no further seizure-like events reported by nursing staff. The patient's Trileptal blood level did return today and it came back in the therapeutic range at 13.8. We will continue close monitoring of this patient during this admission. His overall prognosis remains guarded. Objective - Vital Signs Vital signs: Vital Signs Temp 98.5 F 12/31/17 14:18 Pulse 106 H 12/31/17 14:18 Resp 20 12/31/17 14:18 BP 134/82 12/31/17 14:18 Pulse Ox 94 L 12/31/17 14:18 Intake & Output 12/30/17 12/31/17 12/31/17 18:59 06:59 18:59 Intake Total 1180 Balance 1180 Weight 61.235 kg Intake: Intake, IV Titration 90 Amount Sodium Chloride 0.9% 1, 90 000 ml @ 20 mls/hr IV . Q24H [facility] Rx#:[id number] Oral 1090 Other: Voiding Method Toilet Toilet Toilet # Voids 1 2 2 - Exam Physical examination: PHYSICAL EXAMINATION: Patient is resting comfortably in bed. VITAL SIGNS: Blood pressure is [116/73]. Heart rate is [74]. Respiration is [20] . Temperature is [98.5]. HEENT: Head is atraumatic, neck is supple, there were no carotid bruits. CHEST: Lungs are clear to auscultation and percussion. CARDIAC: S1, S2 normal rate and rhythm. There is no murmur. ABDOMEN: Soft and nontender. Bowel sounds are present. EXTREMITIES: There is no pedal edema. Peripheral pulses are present. Neurological examination: Patient's neurological examination is unchanged from yesterday. - Labs CBC & Chem 7: 12/30/17 08:25 12/30/17 08:25 Assessment and Plan (1) Complex partial epileptic seizure Current Visit: Yes Status: Acute Code(s): G40.209 - LOCAL-REL SYMPTC EPI W CMPLX PRT SEIZ,NOT NTRCT,W/O STAT EPI SNOMED Code(s): 049405701 (2) Chronic schizophrenia Current Visit: No Status: Chronic Code(s): F20.9 - SCHIZOPHRENIA, UNSPECIFIED SNOMED Code(s): 30438666 (3) Bipolar disorder Current Visit: Yes Status: Acute Code(s): F31.9 - BIPOLAR DISORDER, UNSPECIFIED SNOMED Code(s): 58069886 (4) Hyperammonemia Current Visit: Yes Status: Acute Code(s): E72.20 - DISORDER OF UREA CYCLE METABOLISM, UNSPECIFIED SNOMED Code(s): 1736964 Plan: This patient is a 52-year-old male with known history of schizophrenia and bipolar disorder as well as seizure disorder. He was noted this morning to have had a seizure and collapsed in his bathroom. Daughter was at home and was able to assist him immediately. He was postictal following this seizure event. He was attended to immediately by EMS. He was transported to the emergency room at [facility] for further evaluation. Patient had a second seizure in the ER which was witnessed by Dr. Waters lasting 1 minute in duration. It appeared to be a generalized tonic-clonic seizure. Patient is on Trileptal for treatment of his schizophrenia which also his antiepileptic medication. We have ordered a stat Trileptal blood level today for further evaluation. We have recommended an extra dose of Trileptal 300 mg to be given to him by mouth. He is to continue on his current dose of Trileptal 450 mg by mouth twice a day. We have ordered a Trileptal blood level but this is still pending today. For further evaluation of seizure disorder we would recommend a routine EEG as well as MRI of the brain. Patient was able to complete MRI of the brain today results of which are noted above. MRI fails to reveal any enhancing mass lesions as a cause of his seizure activity. His Trileptal level did come back to therapeutic at 13.8. We did review the results of his MRI and EEG with the patient and his was at bedside. His EEG was reviewed and reveals only mild slowing with no epileptiform discharges. We will continue close neurological follow-up the patient during this admission. His overall prognosis at this time remains guarded.
[2018-01-01] MEDS: PERPHENAZINE 4 MG TAB PO SCH ×3 (06:01→21:50)
[2018-01-01] MEDS: HYDROcodone/APAP 5-325MG 1 EACH TAB PO PRN ×3 (06:11→21:49)
[2018-01-01] MEDS: OXcarbazepine 150 MG TAB PO SCH ×2 (07:51→21:50)
[2018-01-01] MEDS: SERTRALINE 50 MG TAB PO SCH (07:51)
[2018-01-01] MEDS: LIDOCAINE 5% PATCH TOPICAL SCH (07:52)
[2018-01-01] MEDS: SODIUM CHLORIDE 0.9% 1,000 ML IV SCH (15:30)
--- NOTE | 2018-01-01 15:37 | P.CNOR ---
History of Present Illness - [facility] Consult date: 01/01/18 Requesting physician: Randall Sims Consult reason: fracture (Multiple lumbar compression fracture deformity status post fall), low back pain History of present illness: Patient is a very pleasant 52-year-old male who is seen and examined at the bedside with his daughter present after consultation was placed for further evaluation for acute low back pain status post fall with imaging showing evidence of lumbar compression fracture deformities. Patient has a history of seizure disorder. Patient was [facility] to [facility] for further evaluation after sustaining a seizure while sitting on the commode and falling to the floor. He has had increased low back pain since that time. He does not remember falling. He states he does not remember previous fractures in his lumbar spine but does admit to multiple previous falls with an exacerbation of back pain at the time of his falls. He is currently being seen and examined by neurology for treatment for his seizure disorder. He continues be followed by medicine. He denies any lower extremity weakness or radiculopathy bilaterally. He states his pain is currently centered along the midline of the lumbar spine. His pain is exacerbated with movements of the spine. He does not have a significant pain in his lumbar spine while coughing. He currently has a lidocaine patch intact over the lumbar spine. He also has a history of chronic schizophrenia and bipolar disorder. Past Medical History Past Medical History: GERD/Reflux, Prostate Disorder, Seizure Disorder History of Any Multi-Drug Resistant Organisms: None Reported Past Surgical History: No Surgical Hx Reported Past Psychological History: Bipolar, Schizophrenia Smoking Status: Former smoker Past Alcohol Use History: None Reported Past Drug Use History: Unable to Obtain - Past Family History Father Family Medical History: Unable to Obtain Medications and Allergies Home Medications Medication Instructions Recorded Confirmed Type OXcarbazepine [Trileptal] 450 mg PO BID #45 tab 08/24/15 12/29/17 Rx LORazepam [Ativan] 1 mg PO TID PRN 03/10/17 12/29/17 History Perphenazine [Trilafon] 8 mg PO BID 03/10/17 12/29/17 History Perphenazine [Trilafon] 16 mg PO HS 03/10/17 12/29/17 History Sertraline [Zoloft] 50 mg PO DAILY 03/10/17 12/29/17 History Lisinopril [Zestril] 20 mg PO DAILY 12/29/17 12/29/17 History Allergies Allergy/AdvReac Type Severity Reaction Status Date / Time No Known Allergies Allergy Verified 12/29/17 16:21 Physical Examination Physical exam: Patient is awake, alert, and oriented 3 Vital signs stable Good chest excursion with deep inspiration and expiration Examination of lumbar spine reveals skin is intact with no abrasions, lacerations, or bruises; no erythema, purulence or signs of infection Pain with palpation midline of the lumbar spine at approximately L1 and L4 Evidence of lidocaine patch intact over the midline of the lumbar spine Dorsiflexion, plantarflexion, and extensor hallucis longus positive sustained bilaterally Lower extremity strength 5/5 bilaterally Patellar reflex 2+ bilaterally and Achilles reflexes 1+ bilaterally No lower extremity hyperreflexia bilaterally Straight leg test negative bilateral lower extremities No signs or symptoms of DVT; no calf pain No pain with internal and external rotation of the hips bilaterally Neurovascularly intact Results Pertinent Studies: X-rays lumbosacral spine taken on 12/31/2017: Multiple compression fracture deformities of indeterminate age; L1 superior endplate compression fracture deformity with approximately 20% height loss; L2 compression fracture deformity of both the superior and inferior endplate with approximately 80% height loss; L3 compression fracture deformity of the superior endplate with approximately 10 % height loss; L4 compression fracture deformity with approximately 25% height loss; overall alignment appears to be adequately maintained - Labs Labs: H & H 12/29/17 12/30/17 Range/Units 12:40 08:25 Hgb 15.6 14.2 (13.0-17.5) gm/dL Hct 48.9 42.2 (39.0-53.0) % Result Diagrams: 12/30/17 08:25 12/30/17 08:25 Assessment and Plan Assessment: Assessment: Acute low back pain status post fall Multiple compression fracture deformities of indeterminate age at L1, L2, L3, L4 with acute pain on physical examination at approximately L1 and L4 Status post seizure with history of seizure disorder History of bipolar disorder History of chronic schizophrenia (1) Lumbar compression fracture Current Visit: Yes Status: Acute Code(s): S32.000A - WEDGE COMPRESSION FRACTURE OF UNSP LUMBAR VERTEBRA, INIT SNOMED Code(s): 991843128 (2) Acute low back pain Current Visit: Yes Status: Acute Code(s): M54.5 - LOW BACK PAIN SNOMED Code(s): 690327406 (3) Status post fall Current Visit: Yes Status: Acute Code(s): Z91.81 - HISTORY OF FALLING SNOMED Code(s): 123523205 (4) Status post seizure Current Visit: Yes Status: Acute Code(s): Z86.69 - PERSONAL HISTORY OF DIS OF THE NERVOUS SYS AND SENSE ORGANS SNOMED Code(s): 96527631 (5) Seizure disorder Current Visit: Yes Status: Acute Code(s): G40.909 - EPILEPSY, UNSP, NOT INTRACTABLE, WITHOUT STATUS EPILEPTICUS SNOMED Code(s): 242335617 (6) Bipolar disorder Current Visit: Yes Status: Acute Code(s): F31.9 - BIPOLAR DISORDER, UNSPECIFIED SNOMED Code(s): 94923758 (7) Chronic schizophrenia Current Visit: No Status: Chronic Code(s): F20.9 - SCHIZOPHRENIA, UNSPECIFIED SNOMED Code(s): 19231475 Plan: Plan: 1. Patient has been discussed in detail with Dr. Aristides Bright and imaging has been reviewed. After further examination of the patient, discussion with the patient, and reviewing of the imaging, we will currently plan to continue with conservative treatment at this time regard to his lumbar spine. He does have evidence of multiple compression fracture deformities of indeterminate age at L1 , L2, L3, and L4. He does have a recent fall when exacerbation of back pain since that time. On physical examination he does have pain at approximately L1 and L4. At this time, we will treat these fractures is acute in nature. A prescription is written for an LSO brace and provided to case management. Once this brace is delivered and fitted appropriately, patient should wear this brace at all times while sitting upright at greater than 45, during ambulation , during increase activities, and working with physical therapy. Brace does not have to warm while lying in bed or while bathing. Patient should avoid excessive bending, twisting, and lifting. Once this brace has been delivered and fitted appropriately, patient is cleared from a orthopedic spine standpoint. 2. Medicine and neurology to continue following the patient for his other medical diagnoses 3. Following discharge, patient may follow-up with Adam Sanchez PA-C or Dr. Aristides Bright at [facility] in approximately 2-3 weeks for further evaluation 4. Patient has been discussed in detail with Dr. Aristides Bright and he agrees with this plan Time with Patient: Less than 30
--- NOTE | 2018-01-01 18:27 | PN ---
PROGRESS NOTE SUBJECTIVE: 52-year-old white male with recurrent seizures, felt to have thoracic vertebral fractures of multiple areas of the spine. Cardiovascular S1-S2. Lungs are clear. GI is soft. Hematology negative Homans. Elevated ammonia levels are not being worked up. There are attributed to seizures per GI physician. Awaiting Dr. Bright's recommendations for thoracic fractures. Cardiovascular S1-S2. Psych: Fair mood and affect. GI soft. Hematology negative Homans. ASSESSMENT: 1. Recurrent seizures. 2. Frequent falls secondary to seizures. 3. Elevated ammonia secondary to seizure. Continue current treatment. Await neurology clearance for discharge. Await for orthopedic surgery prior to discharge. MMODL / IJN: [id number] /
--- NOTE | 2018-01-01 20:34 | P.PN ---
Subjective Progress Note Date: 01/01/18 This patient is a 52-year-old male who is being evaluated for seizure disorder. Patient was admitted with possible recent fall in the bathroom due to seizure. He had another episode in the ER yesterday on admission. He is currently being treated for seizure disorder and is taking Trileptal 450 mg twice a day. Seems to be doing fairly well today with no further seizure events reported overnight. His Trileptal blood level is still pending. He was sent for MRI of the brain today for further evaluation of seizure disorder. MRI reveals no suspicious finding and no evidence of any enhancing lesions in the brain. He also had a routine EEG today which was reviewed and reveals only slight slowing with no epileptiform discharges. At this time we will continue the patient on his current dose of Trileptal. We are waiting his blood level to return from the laboratory and his Trileptal dosage will be adjusted appropriately. We've reviewed the results of the MRI of the brain and EEG today with the patient and his who was at bedside in detail today. He does seem to be doing well today with no further seizure-like events reported by nursing staff. The patient's Trileptal blood level did return today and it came back in the therapeutic range at 13.8. Patient underwent x-rays of the lumbosacral spine due to back pain. He has evidence of multiple compression fracture deformities at L1 and L2 levels. He was seen by orthopedic spine surgery for these acute fractures and they're recommending to continue with conservative treatment at this time. He was recommended to use a LSO brace for this condition. He will follow-up in the orthopedic clinic in 2-3 weeks for further recommendation. Case was discussed today with the patient and his at bedside. As noted is Trileptal blood level did come back in the therapeutic range. He is to continue on his current dose of Trileptal. He is being considered for discharge home soon. We will continue close monitoring of this patient during this admission. His overall prognosis remains guarded. Objective - Vital Signs Vital signs: Vital Signs Temp 98.3 F 01/01/18 14:55 Pulse 94 01/01/18 14:55 Resp 18 01/01/18 14:55 BP 149/87 01/01/18 14:55 Pulse Ox 95 01/01/18 14:55 Intake & Output 01/01/18 01/01/18 01/02/18 06:59 18:59 06:59 Intake Total 1450 240 Balance 1450 240 Weight 61.235 kg Intake: Oral 1450 240 Other: Voiding Method Toilet # Voids 2 3 - Exam Physical examination: PHYSICAL EXAMINATION: Patient is resting comfortably in bed. VITAL SIGNS: Blood pressure is [149/87]. Heart rate is [94]. Respiration is [18] . Temperature is [98.3]. HEENT: Head is atraumatic, neck is supple, there were no carotid bruits. CHEST: Lungs are clear to auscultation and percussion. CARDIAC: S1, S2 normal rate and rhythm. There is no murmur. ABDOMEN: Soft and nontender. Bowel sounds are present. EXTREMITIES: There is no pedal edema. Peripheral pulses are present. Neurological examination: Patient's neurological examination is unchanged from yesterday. - Labs CBC & Chem 7: 12/30/17 08:25 12/30/17 08:25 Assessment and Plan (1) Complex partial epileptic seizure Current Visit: Yes Status: Acute Code(s): G40.209 - LOCAL-REL SYMPTC EPI W CMPLX PRT SEIZ,NOT NTRCT,W/O STAT EPI SNOMED Code(s): 273708197 (2) Chronic schizophrenia Current Visit: No Status: Chronic Code(s): F20.9 - SCHIZOPHRENIA, UNSPECIFIED SNOMED Code(s): 44769470 (3) Bipolar disorder Current Visit: Yes Status: Acute Code(s): F31.9 - BIPOLAR DISORDER, UNSPECIFIED SNOMED Code(s): 53896898 (4) Hyperammonemia Current Visit: Yes Status: Acute Code(s): E72.20 - DISORDER OF UREA CYCLE METABOLISM, UNSPECIFIED SNOMED Code(s): 7511105 Plan: This patient is a 52-year-old male with known history of schizophrenia and bipolar disorder as well as seizure disorder. He was noted this morning to have had a seizure and collapsed in his bathroom. Daughter was at home and was able to assist him immediately. He was postictal following this seizure event. He was attended to immediately by EMS. He was transported to the emergency room at [facility] for further evaluation. Patient had a second seizure in the ER which was witnessed by Dr. Waters lasting 1 minute in duration. It appeared to be a generalized tonic-clonic seizure. Patient is on Trileptal for treatment of his schizophrenia which also his antiepileptic medication. We have ordered a stat Trileptal blood level today for further evaluation. We have recommended an extra dose of Trileptal 300 mg to be given to him by mouth. He is to continue on his current dose of Trileptal 450 mg by mouth twice a day. We have ordered a Trileptal blood level but this is still pending today. For further evaluation of seizure disorder we would recommend a routine EEG as well as MRI of the brain. Patient was able to complete MRI of the brain today results of which are noted above. MRI fails to reveal any enhancing mass lesions as a cause of his seizure activity. His Trileptal level did come back to therapeutic at 13.8. We did review the results of his MRI and EEG with the patient and his was at bedside. His EEG was reviewed and reveals only mild slowing with no epileptiform discharges. Patient underwent plain x-ray of the lumbosacral spine on 12/31/2017 which revealed multiple compression fracture deformities at L1 L2 L3 and L4 levels. He was seen by orthopedic spine surgery and they're recommending he use a LSO back brace. He will follow-up as outpatient in 2-3 weeks with orthopedic surgery. Patient is therapeutic on his Trileptal and may be considered for discharge home. We will continue to monitor for any recurrent seizures. We will continue close neurological follow-up the patient during this admission. His overall prognosis at this time remains guarded.
[2018-01-01 22:21] VITALS: RESP 16
[2018-01-02] MEDS: HYDROcodone/APAP 5-325MG 1 EACH TAB PO PRN ×2 (05:50→11:15)
[2018-01-02] MEDS: PERPHENAZINE 4 MG TAB PO SCH (05:51)
[2018-01-02] MEDS: LIDOCAINE 5% PATCH TOPICAL SCH (08:22)
[2018-01-02] MEDS: SERTRALINE 50 MG TAB PO SCH (08:23)
[2018-01-02] MEDS: OXcarbazepine 150 MG TAB PO SCH (08:23)
[2018-01-02 09:22] VITALS: BP 142/93; PULSE 79; TEMP 98.1
--- NOTE | 2018-01-02 18:05 | P.PN ---
Subjective Progress Note Date: 01/02/18 This patient is a 52-year-old male who is being evaluated for seizure disorder. Patient was admitted with possible recent fall in the bathroom due to seizure. He had another episode in the ER yesterday on admission. He is currently being treated for seizure disorder and is taking Trileptal 450 mg twice a day. Seems to be doing fairly well today with no further seizure events reported overnight. His Trileptal blood level is still pending. He was sent for MRI of the brain today for further evaluation of seizure disorder. MRI reveals no suspicious finding and no evidence of any enhancing lesions in the brain. He also had a routine EEG today which was reviewed and reveals only slight slowing with no epileptiform discharges. At this time we will continue the patient on his current dose of Trileptal. We are waiting his blood level to return from the laboratory and his Trileptal dosage will be adjusted appropriately. We've reviewed the results of the MRI of the brain and EEG today with the patient and his who was at bedside in detail today. He does seem to be doing well today with no further seizure-like events reported by nursing staff. The patient's Trileptal blood level did return today and it came back in the therapeutic range at 13.8. Patient underwent x-rays of the lumbosacral spine due to back pain. He has evidence of multiple compression fracture deformities at L1 and L2 levels. He was seen by orthopedic spine surgery for these acute fractures and they're recommending to continue with conservative treatment at this time. He was recommended to use an ALSO brace for this condition. He will follow-up in the orthopedic clinic in 2-3 weeks for further recommendation. Case was discussed today with the patient and his at bedside. As noted is Trileptal blood level did come back in the therapeutic range. He is to continue on his current dose of Trileptal. He is being considered for discharge home soon. The patient states he is feeling better today. His back pain still seems to come and go secondary to his recent compression fractures. He will follow-up with orthopedic specialists after discharge. We will continue close monitoring of this patient during this admission. His overall prognosis remains guarded. Objective - Vital Signs Vital signs: Vital Signs Temp 98.1 F 01/02/18 07:59 Pulse 79 01/02/18 07:59 Resp 16 01/02/18 07:59 BP 142/93 01/02/18 07:59 Pulse Ox 93 L 01/02/18 07:59 Intake & Output 01/01/18 01/02/18 01/02/18 18:59 06:59 18:59 Intake Total 240 220 Balance 240 220 Intake: Oral 240 220 Other: Voiding Method Toilet # Voids 3 1 3 - Exam Physical examination: PHYSICAL EXAMINATION: Patient is resting comfortably in bed. VITAL SIGNS: Blood pressure is [142/93]. Heart rate is [79]. Respiration is [16] . Temperature is [98.1]. HEENT: Head is atraumatic, neck is supple, there were no carotid bruits. CHEST: Lungs are clear to auscultation and percussion. CARDIAC: S1, S2 normal rate and rhythm. There is no murmur. ABDOMEN: Soft and nontender. Bowel sounds are present. EXTREMITIES: There is no pedal edema. Peripheral pulses are present. Neurological examination: Patient's neurological examination is unchanged from yesterday. - Labs CBC & Chem 7: 12/30/17 08:25 12/30/17 08:25 Assessment and Plan (1) Complex partial epileptic seizure Status: Acute Code(s): G40.209 - LOCAL-REL SYMPTC EPI W CMPLX PRT SEIZ,NOT NTRCT,W/O STAT EPI SNOMED Code(s): 233525212 (2) Chronic schizophrenia Status: Chronic Code(s): F20.9 - SCHIZOPHRENIA, UNSPECIFIED SNOMED Code(s): 95365939 (3) Bipolar disorder Status: Acute Code(s): F31.9 - BIPOLAR DISORDER, UNSPECIFIED SNOMED Code(s) : 72357712 (4) Hyperammonemia Status: Acute Code(s): E72.20 - DISORDER OF UREA CYCLE METABOLISM, UNSPECIFIED SNOMED Code(s): 8118784 Plan: This patient is a 52-year-old male with known history of schizophrenia and bipolar disorder as well as seizure disorder. He was noted this morning to have had a seizure and collapsed in his bathroom. Daughter was at home and was able to assist him immediately. He was postictal following this seizure event. He was attended to immediately by EMS. He was transported to the emergency room at [facility] for further evaluation. Patient had a second seizure in the ER which was witnessed by Dr. Waters lasting 1 minute in duration. It appeared to be a generalized tonic-clonic seizure. Patient is on Trileptal for treatment of his schizophrenia which also his antiepileptic medication. We have ordered a stat Trileptal blood level today for further evaluation. We have recommended an extra dose of Trileptal 300 mg to be given to him by mouth. He is to continue on his current dose of Trileptal 450 mg by mouth twice a day. We have ordered a Trileptal blood level but this is still pending today. For further evaluation of seizure disorder we would recommend a routine EEG as well as MRI of the brain. Patient was able to complete MRI of the brain today results of which are noted above. MRI fails to reveal any enhancing mass lesions as a cause of his seizure activity. His Trileptal level did come back to therapeutic at 13.8. We did review the results of his MRI and EEG with the patient and his was at bedside. His EEG was reviewed and reveals only mild slowing with no epileptiform discharges. Patient underwent plain x-ray of the lumbosacral spine on 12/31/2017 which revealed multiple compression fracture deformities at L1 L2 L3 and L4 levels. He was seen by orthopedic spine surgery and they're recommending he use an ALSO back brace. He will follow-up as outpatient in 2-3 weeks with orthopedic surgery. Patient is therapeutic on his Trileptal and may be considered for discharge home. We will continue to monitor for any recurrent seizures. The patient states his back pain is somewhat improved today with the use of his brace. We will continue close neurological follow-up the patient during this admission. Patient being considered for discharge home soon. His overall prognosis at this time remains guarded.
== END 2018-01-02 17:53 | disposition home or self-care (01) | DRG 101 ==
LOC: EC 12:20 → 5MS5E 16:01
PROVIDERS: ADMIT Family Medicine; ATTEND Family Medicine
DX: G40.209 Localization-related (focal) (partial) symptomatic epilepsy and epileptic syndromes with complex partial seizures, not intractable, without status epilepticus (principal); S32.010A Wedge compression fracture of first lumbar vertebra, initial encounter for closed fracture; E72.20 Disorder of urea cycle metabolism, unspecified; S32.020A Wedge compression fracture of second lumbar vertebra, initial encounter for closed fracture; S32.030A Wedge compression fracture of third lumbar vertebra, initial encounter for closed fracture; S32.040A Wedge compression fracture of fourth lumbar vertebra, initial encounter for closed fracture; G89.11 Acute pain due to trauma; K21.9 Gastro-esophageal reflux disease without esophagitis; N42.9 Disorder of prostate, unspecified; F31.9 Bipolar disorder, unspecified; R29.6 Repeated falls; F20.9 Schizophrenia, unspecified; Z79.899 Other long term (current) drug therapy; Z91.81 History of falling; Z87.891 Personal history of nicotine dependence; W18.30XA Fall on same level, unspecified, initial encounter; Y92.002 Bathroom of unspecified non-institutional (private) residence as the place of occurrence of the external cause
CPT/HCPCS: 36415; 70450; 70553; 71046; 72100; 80053; 80183; 80306; 80320; 81001; 82140; 82550; 82553; 83735; 84484; 85025; 95819; 96374; 99285

== ENCOUNTER 2018-04-06 00:01 | Emergency (ER) | payer BC ==
[2018-04-06 01:22] LABS: Basophils % (A) 0 %; Eosinophils # (A) 0.2 k/uL (0-0.7); Eosinophils % (A) 2 %; HCT 39.7 % (39.0-53.0); HGB 12.8 gm/dL (13.0-17.5); Lymphocytes # (A) 1.7 k/uL (1.0-4.8); Lymphocytes % (A) 25 %; MCH 27.2 pg (25.0-35.0); MCHC 32.3 g/dL (31.0-37.0); MCV 84.4 fL (80.0-100.0); Mean Platelet Volume 6.7; Monocytes # (A) 0.5 k/uL (0-1.0); Monocytes % (A) 7 %; Neutrophils # (A) 4.3 k/uL (1.3-7.7); Neutrophils % (A) 63 %; Platelet Count 288 k/uL (150-450); RBC 4.71 m/uL (4.30-5.90); RDW 12.8 % (11.5-15.5); WBC 6.7 k/uL (3.8-10.6)
--- NOTE | 2018-04-06 01:33 | CT ---
EXAMINATION TYPE: CT brain wo con DATE OF EXAM: 04/06/2018 COMPARISON: 12/29/2017 HISTORY: Ams CT DLP: 1081.60 mGycm Automated exposure control for dose reduction was used. FINDINGS: Ventricles and sulci appear normal. There is no mass effect nor midline shift. There is no sign of in tracranial hemorrhage. The calvarium is intact. IMPRESSION: NEGATIVE CT SCAN OF THE BRAIN. NO CHANGE.
[2018-04-06 01:34] LABS: ALT 30 U/L (21-72); AST 22 U/L (17-59); Albumin 4.2 g/dL (3.5-5.0); Alcohol <10 mg/dL; Alkaline Phosphatase 69 U/L (38-126); Anion Gap 9 mmol/L; Blood Urea Nitrogen 13 mg/dL (9-20); Calcium 9.3 mg/dL (8.4-10.2); Carbamazepine (Tegretol) <3.0 ug/mL; Carbon Dioxide 26 mmol/L (22-30); Chloride 103 mmol/L (98-107); Glucose 90 mg/dL (74-99); Potassium 3.6 mmol/L (3.5-5.1); Sodium 138 mmol/L (137-145); Total Bilirubin 0.2 mg/dL (0.2-1.3); Total Protein 6.8 g/dL (6.3-8.2)
[2018-04-06 02:14] VITALS: RESP 17
--- NOTE | 2018-04-06 03:23 | ED ---
General Adult HPI - General Chief complaint: Altered Mental Status Stated complaint: Altered Mental Status Time Seen by Provider: 04/06/18 00:03 Source: EMS, Caregiver Mode of arrival: EMS - History of Present Illness Initial comments: This patient is a 52-year-old man with history of seizures and disability, who presents with his daughter to be evaluated for generalized fatigue. The patient 's daughter is concerned that this may be leading to a seizure for him. She states that sometimes when he looks like this he will have a seizure within the following hours or day. She is also concerned that he may not have been following his anticonvulsant regimen. the patient does not have any complaints and states that he feels well. Onset/Timin -: days(s) Improves with: none Worsens with: none Associated Symptoms: denies other symptoms Treatments Prior to Arrival: none - Related Data Home Medications Medication Instructions Recorded Confirmed LORazepam [Ativan] 1 mg PO TID PRN 03/10/17 04/08/18 Perphenazine [Trilafon] 8 mg PO BID 03/10/17 04/08/18 Perphenazine [Trilafon] 16 mg PO HS 03/10/17 04/08/18 Lisinopril [Zestril] 20 mg PO DAILY 12/29/17 04/08/18 HYDROcodone/APAP 5-325MG [[place] 1 tab PO BID PRN 04/08/18 04/08/18 5-325] Previous Rx's Medication Instructions Recorded OXcarbazepine [Trileptal] 450 mg PO BID #45 tab 08/24/15 Allergies Allergy/AdvReac Type Severity Reaction Status Date / Time No Known Allergies Allergy Verified 04/08/18 15:38 Review of Systems ROS Statement: Those systems with pertinent positive or pertinent negative responses have been documented in the HPI. ROS Other: All systems not noted in ROS Statement are negative. Constitutional: Denies: fever, weakness Eyes: Denies: vision change Respiratory: Denies: cough, dyspnea Cardiovascular: Denies: chest pain, palpitations Endocrine: Reports: fatigue Gastrointestinal: Denies: abdominal pain, vomiting, diarrhea Musculoskeletal: Denies: back pain Skin: Denies: rash Neurological: Denies: headache, weakness, numbness, confusion Past Medical History Past Medical History: GERD/Reflux, Prostate Disorder, Seizure Disorder History of Any Multi-Drug Resistant Organisms: None Reported Past Surgical History: No Surgical Hx Reported Past Psychological History: Bipolar, Schizophrenia Smoking Status: Former smoker Past Alcohol Use History: None Reported Past Drug Use History: Unable to Obtain - Past Family History Father Family Medical History: Unable to Obtain General Exam General appearance: alert, in no apparent distress Head exam: Present: atraumatic, normocephalic Eye exam: Present: normal appearance, PERRL, EOMI. Absent: scleral icterus, conjunctival injection, nystagmus ENT exam: Present: normal oropharynx Respiratory exam: Present: normal lung sounds bilaterally. Absent: respiratory distress, wheezes, rales, rhonchi, stridor Cardiovascular Exam: Present: regular rate, normal rhythm, normal heart sounds. Absent: systolic murmur, diastolic murmur, rubs, gallop GI/Abdominal exam: Present: soft. Absent: distended, tenderness, guarding, rebound, rigid, mass Extremities exam: Present: normal inspection, normal capillary refill. Absent: pedal edema Neurological exam: Present: alert, CN II-XII intact, normal gait. Absent: motor sensory deficit Skin exam: Present: warm, dry, intact, normal color. Absent: rash Course Vital Signs 04/06/18 04/06/18 04/06/18 01:06 02:13 02:36 Temperature 98.5 F Pulse Rate 69 77 Respiratory 16 17 Rate Blood Pressure 128/79 132/86 O2 Sat by Pulse 98 98 Oximetry 04/06/18 03:30 Temperature 98.6 F Pulse Rate 79 Respiratory 17 Rate Blood Pressure 143/86 O2 Sat by Pulse 97 Oximetry EKG Findings - EKG Results: EKG: interpreted by CASTILLO RAMIREZ, sinus rhythm (Rate 69 bpm), normal axis, normal QRS, normal ST/T, no acute changes - PR, Pacemaker, Normal: Normal tracing: normal tracing Medical Decision Making - Medical Decision Making Patient's 52-year-old man presenting for generalized fatigue. The patient's physical exam is unremarkable, and he is without complaint. His anticonvulsant level is a send out lab, and we will have him follow-up with his physician for the result. Discussed appropriate follow-up and return parameters - Lab Data Result diagrams: 04/06/18 01:10 04/06/18 01:10 Lab Results 04/06/18 04/06/18 04/06/18 Range/Units 01:10 01:10 01:10 WBC 6.7 (3.8-10.6) k/uL RBC 4.71 (4.30-5.90) m/uL Hgb 12.8 L (13.0-17.5) gm/dL Hct 39.7 (39.0-53.0) % MCV 84.4 (80.0-100.0) fL MCH 27.2 (25.0-35.0) pg MCHC 32.3 (31.0-37.0) g/dL RDW 12.8 (11.5-15.5) % Plt Count 288 (150-450) k/uL Neutrophils % 63 % Lymphocytes % 25 % Monocytes % 7 % Eosinophils % 2 % Basophils % 0 % Neutrophils # 4.3 (1.3-7.7) k/uL Lymphocytes # 1.7 (1.0-4.8) k/uL Monocytes # 0.5 (0-1.0) k/uL Eosinophils # 0.2 (0-0.7) k/uL Basophils # 0.0 (0-0.2) k/uL Sodium 138 (137-145) mmol/L Potassium 3.6 (3.5-5.1) mmol/L Chloride 103 (98-107) mmol/L Carbon Dioxide 26 (22-30) mmol/L Anion Gap 9 mmol/L BUN 13 (9-20) mg/dL Creatinine 0.70 (0.66-1.25) mg/dL Est GFR (CKD-EPI)AfAm >90 (>60 ml/min/1.73 sqM) Est GFR (CKD-EPI)NonAf >90 (>60 ml/min/1.73 sqM) Glucose 90 (74-99) mg/dL Calcium 9.3 (8.4-10.2) mg/dL Total Bilirubin 0.2 (0.2-1.3) mg/dL AST 22 (17-59) U/L ALT 30 (21-72) U/L Alkaline Phosphatase 69 (38-126) U/L Total Protein 6.8 (6.3-8.2) g/dL Albumin 4.2 (3.5-5.0) g/dL Carbamazepine <3.0 ug/mL Oxcarbazepine 25.7 (10-35) ug/mL Serum Alcohol <10 mg/dL Disposition Clinical Impression: Fatigue Disposition: HOME SELF-CARE Condition: Fair Instructions: Fatigue (ED) Is patient prescribed a controlled substance at d/c from ED?: No Referrals: Randall Sims MD [Primary Care Provider] - 1-2 days
[2018-04-06 03:32] VITALS: BP 143/86; PULSE 79; TEMP 98.6
== END 2018-04-06 03:42 | disposition home or self-care (01) ==
LOC: EC 00:01
DX: R53.83 Other fatigue (principal); F20.9 Schizophrenia, unspecified; F31.9 Bipolar disorder, unspecified; Z87.891 Personal history of nicotine dependence; Z79.899 Other long term (current) drug therapy
CPT/HCPCS: 36415; 70450; 80053; 80156; 80183; 80320; 85025; 93005; 99285

== ENCOUNTER 2018-04-08 14:49 | Emergency (ER) | payer BC ==
[2018-04-08 15:03] VITALS: TEMP 98.2
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
[2018-04-08 17:11] LABS: Amphetamine Screen,Urine Not Detected (NotDetected); Barbiturate Screen,Urine Not Detected (NotDetected); Benzodiazepines Screen,Urine Detected (NotDetected); Cocaine Screen,Urine Not Detected (NotDetected); Methadone Screen, Urine Not Detected (NotDetected); Opiate Screen,Urine Not Detected (NotDetected); Oxycodone Screen, Urine Not Detected (NotDetected); Phencyclidine Screen,Urine Not Detected (NotDetected); Tricyclic Antidepressant,Urine Not Detected (NotDetected); Urn Cannabinoid Scrn Detected (NotDetected)
[2018-04-08 19:21] VITALS: BP 150/79; PULSE 79; RESP 16
== END 2018-04-08 19:21 | disposition home or self-care (01) ==
LOC: EC 14:49
DX: F91.9 Conduct disorder, unspecified (principal); F20.9 Schizophrenia, unspecified; Z87.891 Personal history of nicotine dependence; Z79.899 Other long term (current) drug therapy
CPT/HCPCS: 80306; 82075; 99284

== ENCOUNTER 2018-08-10 12:42 | Inpatient (IN) | payer BC ==
[2018-08-10] MEDS ORDERED: SODIUM CHLORIDE 0.9% 1,000 ML IV STA (12:56)
[2018-08-10] MEDS ORDERED: SODIUM CHLORIDE 0.9% 500 ML 500 ML IV STA (12:56)
--- NOTE | 2018-08-10 13:06 | ED ---
Seizure HPI - General Chief Complaint: Seizure Stated Complaint: Seizure Time Seen by Provider: 08/10/18 12:42 Source: patient, family, EMS, RN notes reviewed Mode of arrival: EMS Limitations: no limitations - History of Present Illness Initial Comments: This is a 52-year-old male history of seizure disorder and schizophrenia who had a seizure this prior to admission lasting about 4-5 minutes. His last seizure was several weeks ago. He is on medication per his daughter. He is back to his normal baseline mentation per his daughter at this time. No recent trauma fevers chills nausea vomiting sweats or the patient is not a smoker MD Complaint: seizure - Related Data Home Medications Medication Instructions Recorded Confirmed Lisinopril [Zestril] 20 mg PO DAILY 12/29/17 08/10/18 Diazepam [Valium] 5 mg PO TID 08/10/18 08/10/18 Sertraline [Zoloft] 50 mg PO DAILY 08/10/18 08/10/18 Previous Rx's Medication Instructions Recorded OXcarbazepine [Trileptal] 450 mg PO BID #45 tab 08/24/15 Allergies Allergy/AdvReac Type Severity Reaction Status Date / Time No Known Allergies Allergy Verified 08/10/18 12:59 Review of Systems ROS Statement: Those systems with pertinent positive or pertinent negative responses have been documented in the HPI. ROS Other: All systems not noted in ROS Statement are negative. Past Medical History Past Medical History: GERD/Reflux, Prostate Disorder, Seizure Disorder History of Any Multi-Drug Resistant Organisms: None Reported Past Surgical History: No Surgical Hx Reported Past Psychological History: Bipolar, Depression, Schizophrenia Smoking Status: Former smoker Past Alcohol Use History: None Reported Past Drug Use History: Unable to Obtain - Past Family History Father Family Medical History: Unable to Obtain General Exam - General Exam Comments Initial Comments: Is a well-developed sec appearing male who is awake and alert Limitations: no limitations General appearance: alert, in no apparent distress Head exam: Present: atraumatic, normocephalic, normal inspection Eye exam: Present: normal appearance, PERRL, EOMI. Absent: scleral icterus, conjunctival injection, periorbital swelling ENT exam: Present: mucous membranes dry Neck exam: Present: normal inspection. Absent: tenderness, meningismus, lymphadenopathy Respiratory exam: Present: normal lung sounds bilaterally. Absent: respiratory distress, wheezes, rales, rhonchi, stridor Cardiovascular Exam: Present: normal rhythm, tachycardia, normal heart sounds. Absent: systolic murmur, diastolic murmur, rubs, gallop, clicks GI/Abdominal exam: Present: soft, normal bowel sounds. Absent: distended, tenderness, guarding, rebound, rigid Extremities exam: Present: normal inspection, full ROM, normal capillary refill. Absent: tenderness, pedal edema, joint swelling, calf tenderness Back exam: Present: normal inspection Neurological exam: Present: alert, oriented X3, CN II-XII intact Psychiatric exam: Present: normal affect, normal mood Skin exam: Present: warm, dry, intact, normal color. Absent: rash Course Vital Signs 08/10/18 08/10/18 08/10/18 12:45 13:34 13:40 Temperature 101.0 F H Pulse Rate 116 H 83 86 Respiratory 18 19 20 Rate Blood Pressure 125/82 113/81 113/81 O2 Sat by Pulse 100 93 L 92 L Oximetry 08/10/18 08/10/18 08/10/18 13:50 14:00 14:12 Temperature 100.6 F H Pulse Rate 80 89 Respiratory 20 18 Rate Blood Pressure 112/77 112/77 O2 Sat by Pulse 92 L 92 L Oximetry Medical Decision Making - Medical Decision Making I did discuss findings with the patient and family members. Also Dr. Rincon patient will be admitted for IV hydration as well as monitoring for seizure and treatment for pneumonia. - Lab Data Result diagrams: 08/10/18 12:46 08/10/18 12:46 Lab Results 08/10/18 08/10/18 08/10/18 Range/Units 12:46 12:46 12:46 WBC 12.3 H (3.8-10.6) k/uL RBC 5.34 (4.30-5.90) m/uL Hgb 14.3 (13.0-17.5) gm/dL Hct 46.3 (39.0-53.0) % MCV 86.7 (80.0-100.0) fL MCH 26.8 (25.0-35.0) pg MCHC 30.9 L (31.0-37.0) g/dL RDW 13.4 (11.5-15.5) % Plt Count 338 (150-450) k/uL Neutrophils % 84 % Lymphocytes % 9 % Monocytes % 6 % Eosinophils % 1 % Basophils % 0 % Neutrophils # 10.3 H (1.3-7.7) k/uL Lymphocytes # 1.1 (1.0-4.8) k/uL Monocytes # 0.7 (0-1.0) k/uL Eosinophils # 0.1 (0-0.7) k/uL Basophils # 0.0 (0-0.2) k/uL Hypochromasia Slight Sodium 143 (137-145) mmol/L Potassium 4.4 (3.5-5.1) mmol/L Chloride 106 (98-107) mmol/L Carbon Dioxide 14 L (22-30) mmol/L Anion Gap 23 mmol/L BUN 17 (9-20) mg/dL Creatinine 1.07 (0.66-1.25) mg/dL Est GFR (CKD-EPI)AfAm >90 (>60 ml/min/1.73 sqM) Est GFR (CKD-EPI)NonAf 81 (>60 ml/min/1.73 sqM) Glucose 164 H (74-99) mg/dL Calcium 9.9 (8.4-10.2) mg/dL Magnesium 2.1 (1.6-2.3) mg/dL Total Bilirubin 1.0 (0.2-1.3) mg/dL AST 37 (17-59) U/L ALT 15 L (21-72) U/L Alkaline Phosphatase 73 (38-126) U/L Total Creatine Kinase 265 H (55-170) U/L CK-MB (CK-2) <0.2 (0.0-2.4) ng/mL CK-MB (CK-2) Rel Index Total Protein 7.9 (6.3-8.2) g/dL Albumin 4.5 (3.5-5.0) g/dL - EKG Data -: EKG Interpreted by Tn EKG shows normal: sinus rhythm (There was sinus rhythm of 85. Interval 114 QRS duration 82 QT since QTC 358/426 normal-appearing EKG) - Radiology Data Radiology results: report reviewed (Initial imaging the chest x-ray showed no definite changes or was some evidence of dilated bowel loop versus inability to rule out free air. Abdominal x-ray showed nonobstructive bowel gas pattern but evidence of a left lower lobe limited infiltrate.), image reviewed Disposition Clinical Impression: Epileptic seizure, Left lower lobe pneumonia, Dehydration Disposition: ADMITTED IP TO THIS HOSP Condition: Stable Referrals: Randall Sims MD [Primary Care Provider] - 1-2 days
[2018-08-10 13:13] LABS: Basophils % (A) 0 %; Eosinophils # (A) 0.1 k/uL (0-0.7); Eosinophils % (A) 1 %; HCT 46.3 % (39.0-53.0); HGB 14.3 gm/dL (13.0-17.5); Hypochromasia Slight; Lymphocytes # (A) 1.1 k/uL (1.0-4.8); Lymphocytes % (A) 9 %; MCH 26.8 pg (25.0-35.0); MCHC 30.9 g/dL (31.0-37.0); MCV 86.7 fL (80.0-100.0); Mean Platelet Volume 7.1; Monocytes # (A) 0.7 k/uL (0-1.0); Monocytes % (A) 6 %; Neutrophils # (A) 10.3 k/uL (1.3-7.7); Neutrophils % (A) 84 %; Platelet Count 338 k/uL (150-450); RBC 5.34 m/uL (4.30-5.90); RDW 13.4 % (11.5-15.5); WBC 12.3 k/uL (3.8-10.6)
[2018-08-10 13:21] LABS: ALT 15 U/L (21-72); AST 37 U/L (17-59); Albumin 4.5 g/dL (3.5-5.0); Alkaline Phosphatase 73 U/L (38-126); Anion Gap 23 mmol/L; Blood Urea Nitrogen 17 mg/dL (9-20); Calcium 9.9 mg/dL (8.4-10.2); Carbon Dioxide 14 mmol/L (22-30); Chloride 106 mmol/L (98-107); Glucose 164 mg/dL (74-99); Magnesium 2.1 mg/dL (1.6-2.3); Potassium 4.4 mmol/L (3.5-5.1); Sodium 143 mmol/L (137-145); Total Protein 7.9 g/dL (6.3-8.2)
[2018-08-10 13:34] LABS: Creatine Kinase 265 U/L (55-170)
--- NOTE | 2018-08-10 13:42 | XR ---
EXAMINATION TYPE: XR chest 2V DATE OF EXAM: 08/10/2018 HISTORY: cough. REFERENCE: Previous study dated 12/29/2017. FINDINGS: There is air in the right hemidiaphragm. This may be secondary to colonic interposition. It was not evident previously. The lungs are clear. Pleural spaces are clear. Heart size upper limits of normal. Note is made of previous trauma to the proximal right humerus. IMPRESSION: 1. NO ACUTE INTRATHORACIC ABNORMALITY. 2. I CANNOT EXCLUDE FREE INTRAPERITONEAL AIR. ABDOMINAL SERIES WOULD BE SUGGESTED. 3. EVIDENCE OF OLD RIGHT PROXIMAL HUMERUS,.
[2018-08-10 13:44] LABS: Creatine Kinase MB <0.2 ng/mL (0.0-2.4)
--- NOTE | 2018-08-10 17:20 | XR ---
EXAMINATION TYPE: XR abdomen 1V DATE OF EXAM: 08/10/2018 COMPARISON: 03/26/2013 HISTORY: Abdominal pain TECHNIQUE: 2 view supine. FINDINGS: There is large and small bowel gas without disproportionate dilation of edema normal. Lung bases show some minimal infiltrate or atelectasis on the left side. There are no pathologic calcifications over the kidneys. IMPRESSION: Nonacute abdomen. Intestinal gas consistent with air swallowing. Gas is increased compare d to old exam. There is minimal infiltrate or atelectasis at the left lung base.
[2018-08-10] MEDS ORDERED: AZITHROMYCIN 500 MG in SODIUM CHLORIDE 0.9% 250 ML IVPB STA (17:34)
[2018-08-10] MEDS ORDERED: PNEUMONIA PROTOCOL UTILIZED 1 EACH MISC PO PRN (17:34)
[2018-08-10] MEDS: DIAZEPAM 5 MG TAB PO SCH (19:28)
[2018-08-10] MEDS: OXcarbazepine 300 MG TAB PO SCH (19:28)
[2018-08-10 19:41] VITALS: BMI 24.7
[2018-08-10] MEDS: ACETAMINOPHEN TAB 325 MG TAB PO PRN (19:59)
[2018-08-11 05:12] LABS: Glucose,Whole Blood 132 mg/dL (75-99)
--- NOTE | 2018-08-11 09:37 | XR ---
EXAMINATION TYPE: XR chest 2V DATE OF EXAM: 08/11/2018 COMPARISON: 08/10/2018 INDICATION: Pneumonia TECHNIQUE: Frontal and lateral views of the chest are obtained. Patient is rotated to the right. FINDINGS: The heart size is normal. The pulmonary vasculature is normal. There is opacity at the right lung base on the frontal projection. This appears to be in the right lo wer lobe on the lateral view. Findings are worsening from the comparison. IMPRESSION: 1. Developing right lower lobe infiltrate can be compatible with pneumonia.
[2018-08-11] MEDS: LISINOPRIL 20 MG TAB PO SCH (10:01)
[2018-08-11] MEDS: OXcarbazepine 300 MG TAB PO SCH ×2 (10:01→22:09)
[2018-08-11] MEDS: SERTRALINE 50 MG TAB PO SCH (10:01)
[2018-08-11] MEDS: DIAZEPAM 5 MG TAB PO SCH ×3 (10:01→22:09)
[2018-08-11] MEDS: SODIUM CHLORIDE 0.9% 1,000 ML IV SCH ×2 (10:02→10:13)
[2018-08-11] MEDS ORDERED: AZITHROMYCIN 500 MG TAB PO SCH (12:00)
[2018-08-11] MEDS: ACETAMINOPHEN TAB 325 MG TAB PO PRN (14:10)
[2018-08-11] MEDS ORDERED: IPRATROPIUM-ALBUTEROL 3 ML NEB INHALATION PRN (15:37)
[2018-08-11] MEDS ORDERED: PIPERACILLIN-TAZOBACTAM 3.375 GM in SODIUM CHLORIDE 0.9% 100 ML IVPB SCH (16:00)
[2018-08-11] MEDS ORDERED: LEVOFLOXACIN 500MG-D5W PMX 500 MG in DEXTROSE/WATER 1 100ML.BAG IVPB SCH (16:00)
[2018-08-11] MEDS: KETOROLAC 30 MG/ML 1 ML VIAL IVP SCH (16:19)
[2018-08-11] MEDS: IPRATROPIUM-ALBUTEROL 3 ML NEB INHALATION SCH ×2 (17:04→20:38)
--- NOTE | 2018-08-11 18:00 | CONS ---
CONSULTATION DATE OF SERVICE: 08/11/2018 HISTORY OF PRESENT ILLNESS: The patient is a 52-year-old male with a history of bipolar disorder and schizophrenia as well as seizure disorder. Patient was brought into the ER yesterday after having had a seizure at home. Patient is alone at the time of my evaluation; there is no family available, so information is vague, as patient is a very poor historian. Much of the information is gathered from the chart. Patient states that he did come in after having been told he had a seizure, but he is not even sure how he got to the emergency room. Patient's chest x-ray does show a right lower lobe infiltrate. We have been consulted for a pulmonary evaluation. PAST MEDICAL HISTORY: Significant for: 1. Seizure disorder. 2. GERD. 3. Prostate disorder. 4. Bipolar disorder. 5. Schizophrenia. PAST SURGICAL HISTORY: Unavailable. ALLERGIES: NO KNOWN DRUG ALLERGIES. MEDICATIONS: Medications at home include: 1. Lisinopril 20 mg p.o. daily. 2. Valium 5 mg p.o. t.i.d. 3. Zoloft 50 mg p.o. daily. FAMILY HISTORY: Mother is alive and well. Father patient states is no longer living, but he does not know what he of. SOCIAL HISTORY: Patient with a history of smoking; states he quit a long time ago. Denies any alcohol intake. Denies any illicit drug use. Lives with his daughter. REVIEW OF SYSTEMS: GENERAL: Negative for any fever or chills. HEENT: Patient does state that he has a headache. Denies any difficulty hearing. Denies any acute visual changes. Denies any bloody nose or seasonal allergies. Does complain of a sore throat. No difficulty swallowing. RESPIRATORY: Positive for shortness of breath and cough. CARDIOVASCULAR: Negative for chest pain. GI: Negative for abdominal pain, nausea, vomiting, diarrhea or constipation. : Negative for any dysuria or hematuria. ENDOCRINE: Negative for diabetes mellitus or thyroid disease. MUSCULOSKELETAL: Positive for back pain, as patient is asking for medications right now. NEUROLOGIC: Positive for history of seizures. PSYCHIATRIC: Positive for bipolar disorder and schizophrenia. PHYSICAL EXAMINATION: The patient is seen lying in bed. He is awake and alert. He is chewing on some food in his mouth during the entire evaluation and exam. VITAL SIGNS: Temperature 98.6, heart rate 79, respiratory rate 18, blood pressure 120/81, oxygen saturation 97% on 3 L oxygen via nasal cannula. HEENT: Head is normocephalic, atraumatic. Pupils equal, round, reactive to light. Ears and nose: no discharge is noted. Mouth with very poor oral hygiene. Several teeth are missing. Again, patient had a bolus of food in his mouth during the evaluation. Neck is supple. Trachea is midline. LUNGS: Decreased with a few fine wheezes noted. HEART: S1 and S2 heard. Not tachycardic. ABDOMEN: Soft. Bowel sounds are positive. EXTREMITIES: No edema. NEUROLOGIC: Patient is awake, alert. Poor historian. LABS: White count 12.3, hemoglobin 14.3, hematocrit 46.3 with 338,000 platelets. Sodium is 143, potassium 4.4, chloride 106. CO2 is 14. Anion gap is 23, BUN 17, creatinine 1.07, glucose 164, calcium 9.9, magnesium 2.1, total bilirubin 1.0. AST is 37. ALT is 15, alkaline phosphatase 73. Total CK is 265. MB is less than 0.2. Relative index not indicated. Total protein 7.9, albumin 4.5. IMAGING: Chest x-ray done yesterday in the ER showed no acute intrathoracic abnormality; cannot exclude free intraperitoneal air. Recommending abdominal series. Abdominal x-ray was done which showed non-acute abdomen; intestinal gas consistent with air swallowing. Gas is increased compared to old exam. There is minimal infiltrate or atelectasis at the left lung base. Chest x-ray repeated today shows developing right lower lobe infiltrate; can be compatible with pneumonia. IMPRESSION: 1. Suspected aspiration pneumonia. 2. Acute seizure with history of seizure disorder. 3. History of gastroesophageal reflux disease. 4. History of bipolar disorder. 5. Schizophrenia. PLAN: Continue oxygen to maintain saturations greater than or equal to 90%. Change antibiotics to Levaquin and Zosyn. Add GI prophylaxis. Continue SCDs for DVT prophylaxis. Consult Dr. Gotti from Infectious Disease. Continue seizure precautions with neuro checks q.2 hours. Will add bronchodilators to be used q.i.d. and p.r.n. and follow patient closely with you, making further changes necessary. Thank you for the consultation. MMODL / IJN: [id number] /
--- NOTE | 2018-08-11 18:51 | HP ---
HISTORY AND PHYSICAL CHIEF COMPLAINT: 52-year-old white male with history of bipolar schizophrenia, seizure disorder was brought to the ER due to worsening seizure. Mom says he has had one last night also. This one he had pneumonia possibly as a source of the seizures and started on IV Rocephin and Azithromycin. Await for Pulmonary consult. PAST MEDICAL HISTORY: GERD, BPH, bipolar, schizophrenia, seizures. PAST SURGICAL HISTORY: Surgeries unremarkable. ALLERGIES: Negative. MEDICATIONS: Lisinopril, Valium, Zoloft. FAMILY HISTORY: Mother healthy. Father unknown. SOCIAL HISTORY: The patient has history of smoking, quit a long time ago. Denies alcohol intake. Denies illicit drug intake. He lives with his daughter. REVIEW OF SYSTEMS: Fourteen point review of systems negative except for mentioned above. PHYSICAL EXAM: VITAL SIGNS: Temp 98.7, heart rate 70s to 80s, respirations 16 18, blood pressure over 120s over 80s. O2 97 on 3 L. HEENT: Normocephalic, atraumatic. OPHTHALMOLOGIC: Pupils equal, round, react to light and accommodation. PSYCH: Fair mood and affect. GASTROENTEROLOGY: Soft. ASSESSMENT: 1. Seizure disorder. 2. Community-acquired pneumonia. Labs were reviewed. 3. History of gastroesophageal reflux disease. 4. History of bipolar schizophrenia. Continue with azithromycin and Rocephin IV antibiotics. Antibiotics have been changed to Levaquin and Zosyn. Wait for neurology recommendations on seizures. MMODL / IJN: [id number] /
--- NOTE | 2018-08-11 20:16 | CT ---
EXAMINATION TYPE: CT chest wo con DATE OF EXAM: 08/11/2018 COMPARISON: None HISTORY: sob CT DLP: 332.90 mGycm. Automated Exposure Control for Dose Reduction was Utilized. TECHNIQUE: CT scan of the thorax is performed without IV contrast. FINDINGS: There is patchy consolidation and atelectasis at the posterior lung bases. There is small right pleur al effusion. There are small hiatal hernia. Heart size is normal. The upper lung holley are clear. I see no mediastinal adenopathy. There are no hilar masses. There is spondylotic change in the thoracic spine. There is multilevel mild compression deformity of the thoracic and lumbar spine. There is up to 35% anterior wedging of the vertebra. There is osteopenia. There is severe arthritic change in the right shoulder joint. There is subacromial impingement of the right shoulder joint. IMPRESSION: Bilateral lower lobe pulmonary infiltrates and atelectasis with right pleural effusion. T here are small amount of ascites fluid with fluid seen in the right paracolic gutter. Osteopenia and numerous thoracic and lumbar compression fractures.
[2018-08-11] MEDS: PERPHENAZINE 4 MG TAB PO SCH (22:10)
--- NOTE | 2018-08-11 23:50 | CONS ---
CONSULTATION DATE OF SERVICE: 08/11/2018. REASON FOR CONSULTATION: Aspiration pneumonia. HISTORY OF PRESENT ILLNESS: The patient is a 52-year-old male with a past medical history significant for schizophrenia and seizure disorder. The patient was brought into the ER yesterday afternoon after the patient did have seizure activity. Apparently lasted about 4 to 5 minutes. There is no history of any bowel or bladder incontinence, however, the patient did have one episode of vomiting as per the history provided by the family members present at bedside. On arrival to the ER, the patient was noticed to have a fever of 101 degrees Fahrenheit. The patient's initial x-ray with suspicion for air under the diaphragm. The abdominal x-ray did not show the same findings. The patient did have a chest x-ray repeated this morning which did show a developing right lower lobe infiltrate compatible with pneumonia, with concern for possible aspiration pneumonia. He was initially on Rocephin and Zithromax, which were switched over to Zosyn and Levaquin. Infectious Disease was consulted for further recommendation regarding antibiotic. The patient currently denies having any headache. No chest pain or shortness of breath. He did have some cough but not bringing up any sputum. No further nausea or vomiting has been noticed. The patient denies having any abdominal pain. Denies having any diarrhea. No burning or frequency of urine. REVIEW OF SYSTEMS: CONSTITUTIONAL: Positive for weakness and fever. EYES: No complaint. ENT: No complaint. RESPIRATORY: As per HPI. CARDIOVASCULAR: No complaint. GENITOURINARY: No complaint. GASTROINTESTINAL: As per HPI. MUSCULOSKELETAL: No complaint. INTEGUMENTARY: No complaint. PSYCHOLOGICAL: No complaint. ENDOCRINE: No complaint. NEUROLOGICAL: As per HPI. PAST MEDICAL HISTORY: Significant for gastroesophageal reflux disease, prostate disorder, schizophrenia, depression, bipolar. PAST MEDICAL HISTORY: No major surgeries. SOCIAL HISTORY: Remote history of smoking. No drinking or drug use. FAMILY HISTORY: No pertinent findings noticed. ALLERGIES: No known drug allergies. MEDICATIONS: Medications include the patient is currently on Tylenol, DuoNeb, Zosyn, Levaquin, , Toradol, Zestril, , Protonix, Zoloft. EXAMINATION: Blood pressure is 109/66, pulse of 95, temperature 98.3, he is 95% on 4 L nasal cannula. GENERAL DESCRIPTION: A middle-aged male lying in bed in no distress. No tachypnea or accessory muscle of respiration use. HEENT: Shows no pallor or scleral icterus. Oral mucosa is dry. No pharyngeal erythema or pressure. NECK: Trachea is central. No thyromegaly. LUNGS: Unlabored breathing. Clear to auscultation anteriorly. HEART: S1, S2. Regular rate and rhythm. ABDOMEN: Soft, no distention. No guarding or rigidity. No organomegaly. EXTREMITIES: No edema of feet. SKIN: No rash or mass palpable. NEUROLOGIC: The patient is awake, alert, oriented x2. Mood and affect normal. LABS: Hemoglobin is 14.8, white count 4.3, BUN of 17, creatinine 1.07. Electrolytes have been normal. Liver enzymes are normal. Influenza serology was not checked. Blood culture has been negative so far. Chest x-ray reveals developing right lower lobe pneumonia. DIAGNOSTIC IMPRESSION: The patient presented to the hospital after the patient did have seizure activity. He did have a fever on presentation to the hospital, fever of 101 degrees Fahrenheit, tachycardia, elevated white count, meeting criteria for SIRS, now with an episode of vomiting with developing right lower lobe infiltrate, likely and aspiration pneumonia. This patient has been not been on antibiotic in the recent past. There is no need for any concern for any resistant gram-negative infection or gram-negative pneumonia. PLAN: 1. We will try to obtain sputum for Gram stain culture and sensitivity. 2. Discontinue Zosyn and Levaquin. 3. Start the patient on Unasyn 3 g every 6 hours. 4. We will follow along on clinical condition and cultures to further adjust the antibiotic if needed. Family was present at bedside. Their questions were answered. MMODL / IJN: [id number] /
[2018-08-12] MEDS: KETOROLAC 30 MG/ML 1 ML VIAL IVP SCH ×4 (00:34→17:11)
[2018-08-12] MEDS: AMPICILLIN-SULBACTAM 3 GM in SODIUM CHLORIDE 0.9% 100 ML IVPB SCH ×4 (00:34→18:15)
[2018-08-12] MEDS: SODIUM CHLORIDE 0.9% 1,000 ML IV SCH ×4 (05:13→21:02)
[2018-08-12] MEDS: IPRATROPIUM-ALBUTEROL 3 ML NEB INHALATION SCH ×4 (07:31→19:52)
--- NOTE | 2018-08-12 08:46 | CONS ---
CONSULTATION DATE OF CONSULTATION: 08/11/2018 CHIEF COMPLAINT: Seizure. HISTORY OF PRESENT ILLNESS: Mr. Jerez is a 52-year-old, male, who is being evaluated today on 08/11/2018 by the Neurology Service per the request of Dr. Randall Sims for a seizure. The patient has a history of seizures that had been moderately controlled on Trileptal 450 mg b.i.d. He was brought into [facility] emergency room after he had a witnessed generalized tonic-clonic seizure lasting less than 5 minutes. The patient has also been having some coughing spells and a chest x-ray was done, which did show evidence of right lower lobe pneumonia. His CBC showed leukocytosis at 12.3. His Trileptal level has been drawn but the results are pending. At the time of my evaluation, the patient is lying in his bed and appears to be in no acute distress. He has not had any further seizure-like episodes. He denies any headache or dizziness. PAST MEDICAL HISTORY: Seizure disorder, gastroesophageal reflux disease, schizophrenia, bipolar disorder, depression. FAMILY HISTORY: Noncontributory. SOCIAL HISTORY: The patient is a former smoker. There is no history of any alcohol or drug use. HOME MEDICATIONS: Reviewed in the chart. ALLERGIES: No known drug allergies. REVIEW OF SYSTEMS: CONSTITUTIONAL: Positive for fatigue. EYES: Negative. ENT: Negative. CARDIOVASCULAR: Negative. RESPIRATORY: As mentioned above. NEUROLOGICAL: As mentioned above. GASTROINTESTINAL: Negative. GENITOURINARY: Negative. PSYCHIATRIC: As mentioned above. MUSCULOSKELETAL: Positive for occasional joint pain and low back pain. DERMATOLOGICAL: Negative. ENDOCRINE: Negative. PHYSICAL EXAM: Vital signs show a temperature of 98.6, pulse 79, respiration 18, blood pressure 120/81. GENERAL APPEARANCE: The patient is a thin, male who appears to be in no acute distress. HEENT: Normocephalic, atraumatic, no obvious facial asymmetry is seen. The patient does have tongue and lip/mouth movements consistent with tardive dyskinesia. NECK: Supple with no masses felt. CARDIOVASCULAR: Regular rate and rhythm. ABDOMEN: Nontender, nondistended. EXTREMITIES: Showed no edema or clubbing. NEUROLOGICAL EXAM: The patient is awake and oriented x3. Language testing is normal. Speech is mildly dysarthric. No lateralizing weakness is seen. Sensory exam was normal to light touch in all 4 extremities. Cranial nerve testing showed no facial asymmetry but he did have movements consistent with tardive dyskinesia. No seizure- like activity is seen. IMPRESSION: 1. Seizure disorder with recent breakthrough seizure, generalized tonic colonic type. 2. Bipolar disorder. 3. Schizophrenia. 4. Acute pneumonia. RECOMMENDATION: The patient did have a witnessed breakthrough generalized tonic-clonic seizure. The patient states that his seizures had been well-controlled prior to this episode. His acute pneumonia may have reduced his seizure threshold. Continue antibiotic therapy. Continue neuro checks as antibiotics can also reduce his seizure threshold. A Trileptal level is pending. I will order an EEG. Continue seizure precautions. I will continue to follow with you. Further recommendations to follow. Thank you, Dr. Sims, for allowing me to participate in the care of your patient. If you have any questions, please feel free to contact me. KEEGAN / MALKA: [id number] /
[2018-08-12] MEDS: PERPHENAZINE 4 MG TAB PO SCH ×3 (08:47→21:03)
[2018-08-12] MEDS: OXcarbazepine 300 MG TAB PO SCH ×2 (08:47→21:04)
[2018-08-12] MEDS: DIAZEPAM 5 MG TAB PO SCH ×3 (08:47→21:05)
[2018-08-12] MEDS: LISINOPRIL 20 MG TAB PO SCH (08:47)
[2018-08-12] MEDS: SERTRALINE 50 MG TAB PO SCH (08:47)
[2018-08-12] MEDS: PANTOPRAZOLE 40 MG TABLET PO SCH (08:47)
--- NOTE | 2018-08-12 10:09 | P.PN ---
Subjective Progress Note Date: 08/12/18 HPI: This patient is a 52-year-old male with history of bipolar disorder schizophrenia and seizure disorder. The patient was brought into the ER yesterday after having had a seizure at home. Patient is alone at the time of my evaluation; there is no family available, so information is today, as patient is a very poor historian. Much of the information is gathered from the chart. Patient states that he did come in after having been told he had a seizure, but he is not even sure how he got to the emergency room. Patient's chest x-ray does show right lower lobe infiltrate. We have been consulted for a pulmonary evaluation. He does have a past medical history significant for seizure disorder, GERD, prostate disorder, bipolar disorder and schizophrenia. He does have a history of smoking states he quit many years ago. Denies any alcohol intake or any illicit drug use. He lives at home with his daughter. Interval history: 08/12/2018patient is being seen examined and evaluated today on rounds. He is resting up in bed on room air. States his breathing is improved. His been using the nebulizer treatments which seemed to help. He has occasional shortness of breath denies any cough or congestion. All labs and reports have been reviewed. Is being followed closely by neurology, a EEG has been ordered. Objective - Vital Signs Vital signs: Vital Signs Temp 98.2 F 08/12/18 05:00 Pulse 92 08/12/18 07:44 Resp 16 08/12/18 05:00 BP 134/75 08/12/18 05:00 Pulse Ox 96 08/12/18 05:00 Intake & Output 08/11/18 08/12/18 08/12/18 18:59 06:59 18:59 Intake Total 590 Balance 590 Intake: Oral 590 Other: Voiding Method Toilet Toilet Toilet Urinal Urinal Urinal # Voids 2 1 - Exam GENERAL EXAM: Alert, comfortable in no apparent distress. HEAD: Normocephalic. EYES: Normal reaction of pupils, equal size. NOSE: Clear with pink turbinates. THROAT: No erythema or exudates. NECK: No masses, no JVD. CHEST: No chest wall deformity. LUNGS: Equal air entry with no crackles, wheeze, rhonchi or dullness. CVS: S1 and S2 normal with no audible mumurs, regular rhythm. ABDOMEN: No hepatosplenomegaly, normal bowel sounds, no guarding or rigidity. EXTREMITIES: No edema noted, pedal pulses palpable. CENTRAL NERVOUS SYSTEM: No focal deficits, tone is normal in all 4 extremities. - Labs CBC & Chem 7: 08/10/18 12:46 08/10/18 12:46 Labs: Microbiology - Last 24 Hours (Table) 08/10/18 12:25 Blood Culture - Preliminary Blood No Growth after 24 hours Assessment and Plan Assessment: Assessment Suspected aspiration pneumonia Acute seizure with a history of seizure disorders History of GERD History of bipolar disorder Schizophrenia Plan Medications have been reviewed and will be continued as ordered. Infectious disease on consult and adjusting antibiotics Continue with pulmonary hygiene, coughing and deep breathing exercises, and supportive care. Supplemental oxygen to maintain oxygen saturations of 92% or better. Continue nebulizer treatments. Initiate and encourage incentive spirometer GI and DVT prophylaxis. We will continue to monitor labs/results and adjust treatment as necessary. Further recommendations pending. I, the signing physician performed an examination of the patient, discussed and directed their management with the nurse practitioner. I have reviewed the nurse practitioner's note and agree with the documented findings, orders and plan of care.
--- NOTE | 2018-08-12 16:08 | P.PN ---
Subjective Progress Note Date: 08/12/18 Patient is a 52-year-old male who is being followed by the neurology service for seizures. Patient has a history of seizures which have been moderately controlled on Trileptal 450 mg twice a day. Patient had a witnessed generalized tonic-clonic seizure lasting less than 5 minutes. Patient was brought to [facility] for evaluation. During medical workup, patient had evidence of right lower lobe pneumonia. No further seizure-like episodes since admission. At the time of my evaluation, patient is resting comfortably in bed and appears to be in no acute distress. Objective - Vital Signs Vital signs: Vital Signs Temp 97.9 F 08/12/18 12:32 Pulse 86 08/12/18 12:32 Resp 16 08/12/18 12:32 BP 133/79 08/12/18 12:32 Pulse Ox 95 08/12/18 12:32 Intake & Output 08/11/18 08/12/18 08/12/18 18:59 06:59 18:59 Intake Total 590 500 Balance 590 500 Intake: Intake, IV Titration 500 Amount Ampicillin-Sulbactam 3 gm 100 In Sodium Chloride 0.9% 100 ml @ 200 mls/hr IVPB Q6HR PATRICIA Rx#:[id number] Sodium Chloride 0.9% 1, 400 000 ml @ 100 mls/hr IV . Q10H PATRICIA Rx#:[id number] Oral 590 Other: Voiding Method Toilet Toilet Toilet Urinal Urinal Urinal # Voids 2 1 1 - Exam PHYSICAL EXAM: GENERAL APPEARANCE: Patient is a well-developed, male who appears to be in no acute distress. HEENT: Normocephalic, atraumatic, no facial asymmetry is seen. Neck is supple with no masses felt. CARDIOVASCULAR: Regular rate and rhythm. ABDOMEN: Nontender, nondistended. EXTREMITIES: Show no edema or clubbing. NEUROLOGICAL EXAM: Patient is awake, alert, and oriented 3. Speech and language are normal. Strength is full in all 4 extremities. Sensory exam is normal to light touch in all 4 extremities. No facial asymmetry is seen on cranial nerve testing. No tremors or seizure-like activity noted. - Labs CBC & Chem 7: 08/10/18 12:46 08/10/18 12:46 Labs: Microbiology - Last 24 Hours (Table) 08/10/18 12:25 Blood Culture - Preliminary Blood No Growth after 48 hours Assessment and Plan Plan: Impression: 1. Seizure disorder, tonic-clonic type II. Bipolar disorder 3. Schizophrenia 4. Acute pneumonia Recommendation: The patient did have a witnessed breakthrough generalized tonic- clonic seizure. Patient admits that he had run out of his medication and is not sure how long it has been since he had his last dose. Trileptal 450 mg twice a day has been restarted. I counseled patient on importance of calling ahead for refills on this medication. We discussed the dangers of being without this medication. I will get another Trileptal level in the a.m. Continue seizure precautions. EEG was done and results are pending. Continue antibiotics for pneumonia. Continue medical management. I will continue to follow with you. Further recommendations to follow. I performed an examination of the patient and discussed the management with the PUNCHBOARD INSERTER. I have reviewed the PUNCHBOARD INSERTER notes and agree with the findings and plan of care.
--- NOTE | 2018-08-12 19:04 | EEG ---
ELECTROENCEPHALOGRAM REPORT DATE OF SERVICE: 08/12/2018 REASON FOR TESTING: Seizure. CURRENT ANTIEPILEPTIC MEDICATIONS: Trileptal. DESCRIPTION OF THE PROCEDURE: This EEG was performed using a 21-channel digital electroencephalograph, following international 10-20 system. DESCRIPTION OF THE RECORDING: From the beginning of the tracing, and with the patient's eyes closed, the background rhythm was mostly consisting of 9 Hz alpha frequency in the posterior occipital leads. No obvious asymmetry is seen. Frequent muscle and movement artifacts are seen throughout the tracing. Photic stimulation was performed with a minimal driving response seen. No pathological waves were elicited. Hyperventilation was not performed. The patient remains awake throughout the tracing. No epileptiform discharges were seen. His EKG lead showed a regular rate and rhythm. INTERPRETATION: This awake EEG is limited due to the frequency of movement and muscle artifacts. No obvious epileptiform discharges were seen. The absence of epileptiform discharges does not rule out the diagnosis of epilepsy; therefore clinical correlation is recommended. MMDAMIEN / MALKA: [id number] /
[2018-08-12] MEDS: ACETAMINOPHEN TAB 325 MG TAB PO PRN (21:08)
--- NOTE | 2018-08-12 22:31 | PN ---
PROGRESS NOTE DATE OF SERVICE: 08/12/2018. REASON FOR FOLLOWUP: Aspiration pneumonia. INTERVAL HISTORY: The patient is afebrile. The patient has been breathing more comfortably. He did have some cough but not bringing up any sputum. No nausea, no vomiting, no cough, no abdominal pain. No diarrhea. PHYSICAL EXAMINATION: On exam, blood pressure 113/72 with a pulse of 99, temperature 97.4. He is 95% on room air. General description is a middle-aged male lying in bed in no distress. Respiratory system: Unlabored breathing with decreased breath sounds in the bases. HEART: S1, S2. Regular rate and rhythm. Abdomen soft. No tenderness. LABS: No new labs have been obtained today. Blood culture has been negative. DIAGNOSTIC IMPRESSION AND PLAN: Patient with right lower lobe pneumonia in a patient admitted to the hospital for seizure negative with concern for likely aspiration pneumonia. The patient is currently covered with Unasyn that will be continued for now. We will try to obtain a sputum to narrow the antibiotics. Continue supportive care. MMODL / IJN: [id number] /
[2018-08-13] MEDS: AMPICILLIN-SULBACTAM 3 GM in SODIUM CHLORIDE 0.9% 100 ML IVPB SCH ×5 (00:53→23:40)
[2018-08-13] MEDS: KETOROLAC 30 MG/ML 1 ML VIAL IVP SCH ×5 (00:55→23:38)
[2018-08-13] MEDS: SODIUM CHLORIDE 0.9% 1,000 ML IV SCH ×2 (05:38→16:52)
[2018-08-13] MEDS: SERTRALINE 50 MG TAB PO SCH (08:36)
[2018-08-13] MEDS: PERPHENAZINE 4 MG TAB PO SCH ×3 (08:36→22:39)
[2018-08-13] MEDS: OXcarbazepine 300 MG TAB PO SCH ×2 (08:37→22:37)
[2018-08-13] MEDS: LISINOPRIL 20 MG TAB PO SCH (08:40)
[2018-08-13] MEDS: DIAZEPAM 5 MG TAB PO SCH ×3 (08:40→22:37)
[2018-08-13] MEDS: PANTOPRAZOLE 40 MG TABLET PO SCH (08:40)
[2018-08-13] MEDS: IPRATROPIUM-ALBUTEROL 3 ML NEB INHALATION SCH ×4 (09:04→19:37)
--- NOTE | 2018-08-13 09:11 | PN ---
PROGRESS NOTE DATE OF SERVICE: 08/12/2018 CHIEF COMPLAINT: A 52-year-old white male with community-acquired pneumonia on Zosyn and Levaquin. The patient is improving. He has had no seizures. Neurologic consult reviewed. CARDIOVASCULAR: S1, S2. LUNGS: Transmitted upper airway sounds. Surgery saw him for his GI distention which was negative. HEMATOLOGY: Negative Homans. ASSESSMENT: 1. Pneumonia. 2. Seizures. 3. Acute respiratory distress. 4. Recurrent seizures secondary to pneumonia. Continue with IV antibiotics, seizure treatment. MMODL / IJN: [id number] /
[2018-08-13 09:13] LABS: ALT 21 U/L (21-72); AST 18 U/L (17-59); Alkaline Phosphatase 52 U/L (38-126); Anion Gap 6 mmol/L; Blood Urea Nitrogen 2 mg/dL (9-20); Calcium 8.5 mg/dL (8.4-10.2); Carbon Dioxide 25 mmol/L (22-30); Chloride 114 mmol/L (98-107); Glucose 83 mg/dL (74-99); Potassium 3.5 mmol/L (3.5-5.1); Sodium 145 mmol/L (137-145); Total Bilirubin 0.4 mg/dL (0.2-1.3); Total Protein 5.8 g/dL (6.3-8.2)
[2018-08-13 09:25] LABS: Basophils % (A) 1 %; Eosinophils # (A) 0.2 k/uL (0-0.7); Eosinophils % (A) 4 %; HGB 11.5 gm/dL (13.0-17.5); Lymphocytes # (A) 1.1 k/uL (1.0-4.8); Lymphocytes % (A) 21 %; MCH 27.7 pg (25.0-35.0); MCHC 32.8 g/dL (31.0-37.0); MCV 84.5 fL (80.0-100.0); Mean Platelet Volume 7.7; Monocytes # (A) 0.4 k/uL (0-1.0); Monocytes % (A) 8 %; Neutrophils # (A) 3.3 k/uL (1.3-7.7); Neutrophils % (A) 65 %; Platelet Count 261 k/uL (150-450); RBC 4.14 m/uL (4.30-5.90); RDW 13.8 % (11.5-15.5); WBC 5.1 k/uL (3.8-10.6)
--- NOTE | 2018-08-13 13:46 | P.PN ---
Subjective Progress Note Date: 08/13/18 HPI: This patient is a 52-year-old male with history of bipolar disorder schizophrenia and seizure disorder. The patient was brought into the ER yesterday after having had a seizure at home. Patient is alone at the time of my evaluation; there is no family available, so information is today, as patient is a very poor historian. Much of the information is gathered from the chart. Patient states that he did come in after having been told he had a seizure, but he is not even sure how he got to the emergency room. Patient's chest x-ray does show right lower lobe infiltrate. We have been consulted for a pulmonary evaluation. He does have a past medical history significant for seizure disorder, GERD, prostate disorder, bipolar disorder and schizophrenia. He does have a history of smoking states he quit many years ago. Denies any alcohol intake or any illicit drug use. He lives at home with his daughter. Interval history: 08/12/2018patient is being seen examined and evaluated today on rounds. He is resting up in bed on room air. States his breathing is improved. His been using the nebulizer treatments which seemed to help. He has occasional shortness of breath denies any cough or congestion. All labs and reports have been reviewed. Is being followed closely by neurology, a EEG has been ordered. 08/13/18- patient is being seen examined and evaluated today on rounds. He continues on room air. His breathing he states it has continued to improve. He does like the nebulizer treatments. Denies any cough or congestion. Continues with seizure precautions. No breakthrough seizures noted overnight. Afebrile no further complaints. Objective - Vital Signs Vital signs: Vital Signs Temp 98 F 08/13/18 12:57 Pulse 113 H 08/13/18 12:57 Resp 18 08/13/18 12:57 BP 145/74 08/13/18 12:57 Pulse Ox 95 08/13/18 12:57 Intake & Output 08/12/18 08/13/18 08/13/18 18:59 06:59 18:59 Intake Total 500 1800 Balance 500 1800 Weight 61.235 kg Intake: Intake, IV Titration 500 1800 Amount Ampicillin-Sulbactam 3 gm 100 200 In Sodium Chloride 0.9% 100 ml @ 200 mls/hr IVPB Q6HR [facility] Rx#:[id number] Sodium Chloride 0.9% 1, 400 1600 000 ml @ 100 mls/hr IV . Q10H [facility] Rx#:[id number] Other: Voiding Method Toilet Toilet Toilet Urinal Urinal Urinal # Voids 1 - Exam GENERAL EXAM: Alert, comfortable in no apparent distress. HEAD: Normocephalic. EYES: Normal reaction of pupils, equal size. NOSE: Clear with pink turbinates. THROAT: No erythema or exudates. NECK: No masses, no JVD. CHEST: No chest wall deformity. LUNGS: Equal air entry with no crackles, wheeze, rhonchi or dullness. CVS: S1 and S2 normal with no audible mumurs, regular rhythm. ABDOMEN: No hepatosplenomegaly, normal bowel sounds, no guarding or rigidity. EXTREMITIES: No edema noted, pedal pulses palpable. CENTRAL NERVOUS SYSTEM: No focal deficits, tone is normal in all 4 extremities. - Labs CBC & Chem 7: 08/13/18 08:16 08/13/18 08:16 Labs: Abnormal Lab Results - Last 24 Hours (Table) 08/13/18 08/13/18 Range/Units 08:16 08:16 RBC 4.14 L (4.30-5.90) m/uL Hgb 11.5 L (13.0-17.5) gm/dL Hct 35.0 L (39.0-53.0) % Chloride 114 H (98-107) mmol/L BUN 2 L (9-20) mg/dL Creatinine 0.61 L (0.66-1.25) mg/dL Total Protein 5.8 L (6.3-8.2) g/dL Albumin 3.0 L (3.5-5.0) g/dL Microbiology - Last 24 Hours (Table) 08/10/18 12:25 Blood Culture - Preliminary Blood No Growth after 48 hours Assessment and Plan Assessment: Assessment Suspected aspiration pneumonia Acute seizure with a history of seizure disorders History of GERD History of bipolar disorder Schizophrenia Plan Medications have been reviewed and will be continued as ordered. Infectious disease on consult and adjusting antibiotics Continue with pulmonary hygiene, coughing and deep breathing exercises, and supportive care. Supplemental oxygen to maintain oxygen saturations of 92% or better. Continue nebulizer treatments. Initiate and encourage incentive spirometer GI and DVT prophylaxis. We will continue to monitor labs/results and adjust treatment as necessary. Further recommendations pending. I, the signing physician performed an examination of the patient, discussed and directed their management with the nurse practitioner. I have reviewed the nurse practitioner's note and agree with the documented findings, orders and plan of care.
--- NOTE | 2018-08-13 17:37 | P.PN ---
Subjective Progress Note Date: 08/13/18 Patient is a 52-year-old male who is being followed by the neurology service for seizures. Patient has a history of seizures which have been moderately controlled on Trileptal 450 mg twice a day. Patient had a witnessed generalized tonic-clonic seizure lasting less than 5 minutes. Patient was brought to [facility] for evaluation. During medical workup, patient had evidence of right lower lobe pneumonia. No further seizure-like episodes since admission. At the time of my evaluation, patient is resting comfortably in bed and appears to be in no acute distress. 08/13/2018 Patient is a 52-year-old male who is being followed by the neurology service for seizures. Patient had a witnessed tonic-clonic seizure and was brought to [facility] for evaluation. Patient's Trileptal level was less than 1.0 indicating he has not been taking this medication. Trileptal was restarted at his home dose. I had ordered a repeat Trileptal level for this morning and it was drawn but it was sent out to be resulted. No seizures reported since admission. Patient continues on antibiotics for pneumonia. At the time of my evaluation, patient's resting comfortably in bed and appears to be in no acute distress. Objective - Vital Signs Vital signs: Vital Signs Temp 98 F 08/13/18 12:57 Pulse 92 08/13/18 16:17 Resp 18 08/13/18 12:57 BP 145/74 08/13/18 12:57 Pulse Ox 95 08/13/18 12:57 Intake & Output 08/12/18 08/13/18 08/13/18 18:59 06:59 18:59 Intake Total 500 1800 800 Balance 500 1800 800 Weight 61.235 kg Intake: Intake, IV Titration 500 1800 800 Amount Ampicillin-Sulbactam 3 gm 100 200 100 In Sodium Chloride 0.9% 100 ml @ 200 mls/hr IVPB Q6HR [facility] Rx#:[id number] Sodium Chloride 0.9% 1, 400 1600 700 000 ml @ 100 mls/hr IV . Q10H [facility] Rx#:[id number] Other: Voiding Method Toilet Toilet Toilet Urinal Urinal Urinal # Voids 1 - Exam PHYSICAL EXAM: GENERAL APPEARANCE: Patient is a well-developed, male who appears to be in no acute distress. HEENT: Normocephalic, atraumatic, no facial asymmetry is seen. Neck is supple with no masses felt. CARDIOVASCULAR: Regular rate and rhythm. ABDOMEN: Nontender, nondistended. EXTREMITIES: Show no edema or clubbing. NEUROLOGICAL EXAM: Patient is awake, alert, and oriented 3. Speech and language are normal. Strength is full in all 4 extremities. Sensory exam is normal to light touch in all 4 extremities. No facial asymmetry is seen on cranial nerve testing. No tremors or seizure-like activity noted. - Labs CBC & Chem 7: 08/13/18 08:16 08/13/18 08:16 Labs: Abnormal Lab Results - Last 24 Hours (Table) 08/13/18 08/13/18 Range/Units 08:16 08:16 RBC 4.14 L (4.30-5.90) m/uL Hgb 11.5 L (13.0-17.5) gm/dL Hct 35.0 L (39.0-53.0) % Chloride 114 H (98-107) mmol/L BUN 2 L (9-20) mg/dL Creatinine 0.61 L (0.66-1.25) mg/dL Total Protein 5.8 L (6.3-8.2) g/dL Albumin 3.0 L (3.5-5.0) g/dL Microbiology - Last 24 Hours (Table) 08/10/18 12:25 Blood Culture - Preliminary Blood No Growth after 72 hours Assessment and Plan Plan: Impression: 1. Seizure disorder, tonic-clonic type II. Bipolar disorder 3. Schizophrenia 4. Acute pneumonia Recommendation: The patient did have a witnessed breakthrough generalized tonic- clonic seizure. Patient admits that he had run out of his medication and is not sure how long it has been since he had his last dose. Trileptal 450 mg twice a day has been restarted. Trileptal level on admission was less than 1.0. I counseled patient on importance of calling ahead for refills on this medication. We discussed the dangers of being without this medication. Trileptal level from this morning is pending. Continue seizure precautions. EEG was done and showed no epileptiform discharges. Continue antibiotics for pneumonia. Continue medical management. I will continue to follow with you. Further recommendations to follow. I performed an examination of the patient and discussed the management with the ACCESS SERVICE REPRESENTATIVE. I have reviewed the ACCESS SERVICE REPRESENTATIVE notes and agree with the findings and plan of care.
--- NOTE | 2018-08-13 17:38 | PN ---
PROGRESS NOTE DATE OF SERVICE: 08/13/2018. REASON FOR FOLLOWUP: Aspiration pneumonia. INTERVAL HISTORY: The patient is currently afebrile. He is breathing comfortably. Denies having any chest pain. Very minimal cough not bringing up any sputum. No nausea, no vomiting. No abdominal pain. No diarrhea. No further seizure has been noticed. EXAMINATION: Blood pressure 145/74, pulse of 88, temperature of 98. He is 95% on room air. General description is a middle-aged male lying in bed in no distress. Respiratory System: Unlabored breathing, clear to auscultation anteriorly. Heart S1, S2. Regular rate and rhythm. ABDOMEN: Soft, no tenderness. LABS: Hemoglobin 11.5, white count 5.1 with a BUN of 2, creatinine 0.61. Blood culture has been negative. Was unable to provide any sputum. DIAGNOSTIC IMPRESSION AND PLAN: Patient with fever with right lower lobe infiltrate after the patient did have a seizure activity with concern for likely an aspiration pneumonia. Blood culture has been negative so far. Patient has been continued with Unasyn. His white count has normalized. Continue supportive care. MMODL / IJN: [id number] /
--- NOTE | 2018-08-13 23:59 | PN ---
PROGRESS NOTE SUBJECTIVE: This is a 52-year-old white male was admitted to the hospital. Breathing is improving. Cardiovascular S1-S2. Lungs scattered wheeze and rhonchi. Hematology negative Homans. GI: Soft. His breathing is slowly improving. ASSESSMENT: Breakthrough seizures. Possible discharge home in the next 24 to 48 hours. Cardiovascular S1-S2. Lungs scattered rhonchi and wheeze. HEMATOLOGY: Negative Homans. O2 95% on room air. Blood pressure 145/74, respiratory 18-20, blood pressure is 100 to 113, temp 98. PLAN: Continue with antibiotics. Possible discharge in the home next 24 to 48 hours. He is improving from medical standpoint. MMODL / IJN: [id number] /
[2018-08-14] MEDS: SODIUM CHLORIDE 0.9% 1,000 ML IV SCH ×2 (05:30→17:40)
[2018-08-14] MEDS: AMPICILLIN-SULBACTAM 3 GM in SODIUM CHLORIDE 0.9% 100 ML IVPB SCH (05:30)
[2018-08-14] MEDS: KETOROLAC 30 MG/ML 1 ML VIAL IVP SCH ×4 (05:32→23:18)
[2018-08-14] MEDS: IPRATROPIUM-ALBUTEROL 3 ML NEB INHALATION SCH ×4 (07:06→19:43)
--- NOTE | 2018-08-14 07:20 | XR ---
EXAMINATION TYPE: XR chest 2V DATE OF EXAM: 08/14/2018 COMPARISON: Chest x-ray and CT chest from 3 days ago. HISTORY: Pneumonia progress study. TECHNIQUE: Frontal and lateral views of the chest are obtained. FINDINGS: There is left basilar opacity that is now present. Right basilar opacity is improved. Sma ll to tiny bilateral pleural effusions are seen on lateral view. The cardiac silhouette size remains within normal limits. Fracture deformity right humeral head is redemonstrated. IMPRESSION: Persistent tiny bilateral pleural effusions with redemonstration of more focal left basi lar atelectasis and/or infiltrate. Improved aeration right lung base noted.
[2018-08-14] MEDS: SERTRALINE 50 MG TAB PO SCH (08:11)
[2018-08-14] MEDS: OXcarbazepine 300 MG TAB PO SCH ×2 (08:11→20:44)
[2018-08-14] MEDS: PERPHENAZINE 4 MG TAB PO SCH ×3 (08:12→20:43)
[2018-08-14] MEDS: LISINOPRIL 20 MG TAB PO SCH (08:16)
[2018-08-14] MEDS: PANTOPRAZOLE 40 MG TABLET PO SCH (08:16)
[2018-08-14] MEDS: DIAZEPAM 5 MG TAB PO SCH ×2 (08:16→15:15)
--- NOTE | 2018-08-14 10:41 | P.PN ---
Subjective Progress Note Date: 08/14/18 Principal diagnosis: Aspiration pneumonia HPI: This patient is a 52-year-old male with history of bipolar disorder schizophrenia and seizure disorder. The patient was brought into the ER yesterday after having had a seizure at home. Patient is alone at the time of my evaluation; there is no family available, so information is today, as patient is a very poor historian. Much of the information is gathered from the chart. Patient states that he did come in after having been told he had a seizure, but he is not even sure how he got to the emergency room. Patient's chest x-ray does show right lower lobe infiltrate. We have been consulted for a pulmonary evaluation. He does have a past medical history significant for seizure disorder, GERD, prostate disorder, bipolar disorder and schizophrenia. He does have a history of smoking states he quit many years ago. Denies any alcohol intake or any illicit drug use. He lives at home with his daughter. Interval history: 08/12/2018patient is being seen examined and evaluated today on rounds. He is resting up in bed on room air. States his breathing is improved. His been using the nebulizer treatments which seemed to help. He has occasional shortness of breath denies any cough or congestion. All labs and reports have been reviewed. Is being followed closely by neurology, a EEG has been ordered. 08/13/18- patient is being seen examined and evaluated today on rounds. He continues on room air. His breathing he states it has continued to improve. He does like the nebulizer treatments. Denies any cough or congestion. Continues with seizure precautions. No breakthrough seizures noted overnight. Afebrile no further complaints. 08/14/2018: Patient seen and examined. Patient states he is feeling better today. He states he feels like he is ready to go home. He denies cough, fevers , chills. He states he feels like his breathing is at baseline. He is currently on room air. He has been afebrile. He did ambulate this morning and denies shortness of breath with ambulation. Objective - Vital Signs Vital signs: Vital Signs Temp 98.5 F 08/14/18 04:37 Pulse 80 08/14/18 07:18 Resp 16 08/14/18 04:37 BP 125/81 08/14/18 04:37 Pulse Ox 95 08/14/18 04:37 Intake & Output 08/13/18 08/14/18 08/14/18 18:59 06:59 18:59 Intake Total 800 1800 Balance 800 1800 Weight 61.235 kg Intake: Intake, IV Titration 800 1800 Amount Ampicillin-Sulbactam 3 gm 100 200 In Sodium Chloride 0.9% 100 ml @ 200 mls/hr IVPB Q6HR [facility] Rx#:[id number] Sodium Chloride 0.9% 1, 700 1600 000 ml @ 100 mls/hr IV . Q10H [facility] Rx#:[id number] Other: Voiding Method Toilet Toilet Urinal Urinal - Exam GENERAL EXAM: Alert, comfortable in no apparent distress. HEAD: Normocephalic. EYES: Normal reaction of pupils, equal size. NOSE: Clear with pink turbinates. THROAT: No erythema or exudates. NECK: No masses, no JVD. CHEST: No chest wall deformity. LUNGS: Equal air entry with no crackles, wheeze, rhonchi or dullness. CVS: S1 and S2 normal with no audible mumurs, regular rhythm. ABDOMEN: No hepatosplenomegaly, normal bowel sounds, no guarding or rigidity. EXTREMITIES: No edema noted, pedal pulses palpable. CENTRAL NERVOUS SYSTEM: No focal deficits, tone is normal in all 4 extremities. - Labs CBC & Chem 7: 08/13/18 08:16 08/13/18 08:16 Labs: Microbiology - Last 24 Hours (Table) 08/10/18 12:25 Blood Culture - Preliminary Blood No Growth after 72 hours Assessment and Plan Assessment: Aspiration pneumonia Tiny bilateral pleural effusions Acute seizure with a history of seizure disorders History of GERD History of bipolar disorder Schizophrenia Plan: Medications have been reviewed and will be continued as ordered. ABX per ID Decrease IVF Continue with pulmonary hygiene, coughing and deep breathing exercises, and supportive care. Supplemental oxygen to maintain oxygen saturations of 92% or better. Continue nebulizer treatments. Initiate and encourage incentive spirometer GI and DVT prophylaxis. We will continue to monitor labs/results and adjust treatment as necessary. Further recommendations pending. Respiratory status is stable. Ok to DC from pulmonary standpoint. CXR in 4-6 weeks to ensure clearance.
[2018-08-14] MEDS: AMOXIC-POT CLAV 875-125MG 1 EACH TAB PO SCH (15:12)
--- NOTE | 2018-08-14 15:57 | P.PN ---
Subjective Progress Note Date: 08/14/18 Patient is a 52-year-old male who is being followed by the neurology service for seizures. Patient has a history of seizures which have been moderately controlled on Trileptal 450 mg twice a day. Patient had a witnessed generalized tonic-clonic seizure lasting less than 5 minutes. Patient was brought to [facility] for evaluation. During medical workup, patient had evidence of right lower lobe pneumonia. No further seizure-like episodes since admission. At the time of my evaluation, patient is resting comfortably in bed and appears to be in no acute distress. 08/13/2018 Patient is a 52-year-old male who is being followed by the neurology service for seizures. Patient had a witnessed tonic-clonic seizure and was brought to [facility] for evaluation. Patient's Trileptal level was less than 1.0 indicating he has not been taking this medication. Trileptal was restarted at his home dose. I had ordered a repeat Trileptal level for this morning and it was drawn but it was sent out to be resulted. No seizures reported since admission. Patient continues on antibiotics for pneumonia. At the time of my evaluation, patient's resting comfortably in bed and appears to be in no acute distress. 08/14/2018 Patient is a 52-year-old male is being followed by the neurology service for seizures. Patient came to [facility] with a witnessed tonic-clonic seizure. Patient's Trileptal level was less than 1.0 on admission. Trileptal was restarted at his home dose and Trileptal level is therapeutic today. Patient denies any further neurological complaints. At the time of my evaluation, patient's resting comfortably in bed and appears to be in no acute distress. Objective - Vital Signs Vital signs: Vital Signs Temp 97.7 F 08/14/18 12:05 Pulse 87 08/14/18 12:05 Resp 17 08/14/18 12:05 BP 144/88 08/14/18 12:05 Pulse Ox 96 08/14/18 12:05 Intake & Output 08/13/18 08/14/18 08/14/18 18:59 06:59 18:59 Intake Total 800 1800 Balance 800 1800 Weight 61.235 kg Intake: Intake, IV Titration 800 1800 Amount Ampicillin-Sulbactam 3 gm 100 200 In Sodium Chloride 0.9% 100 ml @ 200 mls/hr IVPB Q6HR [facility] Rx#:[id number] Sodium Chloride 0.9% 1, 700 1600 000 ml @ 100 mls/hr IV . Q10H [facility] Rx#:[id number] Other: Voiding Method Toilet Toilet Urinal Urinal - Exam PHYSICAL EXAM: GENERAL APPEARANCE: Patient is a well-developed, male who appears to be in no acute distress. HEENT: Normocephalic, atraumatic, no facial asymmetry is seen. Neck is supple with no masses felt. CARDIOVASCULAR: Regular rate and rhythm. ABDOMEN: Nontender, nondistended. EXTREMITIES: Show no edema or clubbing. NEUROLOGICAL EXAM: Patient is awake, alert, and oriented 3. Speech and language are normal. Strength is full in all 4 extremities. Sensory exam is normal to light touch in all 4 extremities. No facial asymmetry is seen on cranial nerve testing. No tremors or seizure-like activity noted. - Labs CBC & Chem 7: 08/13/18 08:16 08/13/18 08:16 Labs: Microbiology - Last 24 Hours (Table) 08/10/18 12:25 Blood Culture - Preliminary Blood No Growth after 96 hours Assessment and Plan Plan: Impression: 1. Seizure disorder, tonic-clonic type II. Bipolar disorder 3. Schizophrenia 4. Acute pneumonia Recommendation: The patient did have a witnessed breakthrough generalized tonic- clonic seizure. Patient admits that he had run out of his medication and is not sure how long it has been since he had his last dose. Trileptal 450 mg twice a day has been restarted. As mentioned above, Trileptal level on admission was less than 1.0. Trileptal level is therapeutic today at 16.7. I counseled patient on importance of calling ahead for refills on this medication. We discussed the dangers of being without this medication. Patient is stable for discharge home from a neurological standpoint. Patient is to follow up with his neurologist following discharge. EEG was done and showed no epileptiform discharges. Continue current Trileptal dose. Continue antibiotics for pneumonia. Continue medical management. I will continue to follow with you on an as-needed basis. Feel free to call with any questions or concerns. I performed an examination of the patient and discussed the management with the SUPERVISOR TELEPHONE ANSWERING SERVICE. I have reviewed the SUPERVISOR TELEPHONE ANSWERING SERVICE notes and agree with the findings and plan of care.
[2018-08-15] MEDS: AMOXIC-POT CLAV 875-125MG 1 EACH TAB PO SCH ×2 (00:11→08:24)
[2018-08-15] MEDS: DIAZEPAM 5 MG TAB PO SCH ×2 (00:11→08:24)
[2018-08-15 00:27] VITALS: TEMP 98.1
[2018-08-15] MEDS: AMPICILLIN-SULBACTAM 3 GM in SODIUM CHLORIDE 0.9% 100 ML IVPB SCH (00:50)
[2018-08-15] MEDS: KETOROLAC 30 MG/ML 1 ML VIAL IVP SCH ×2 (05:54→13:12)
[2018-08-15 06:23] VITALS: BP 138/90; RESP 17
[2018-08-15] MEDS: IPRATROPIUM-ALBUTEROL 3 ML NEB INHALATION SCH ×2 (08:09→11:15)
[2018-08-15 08:18] VITALS: PULSE 74
[2018-08-15] MEDS: OXcarbazepine 300 MG TAB PO SCH (08:24)
[2018-08-15] MEDS: LISINOPRIL 20 MG TAB PO SCH (08:24)
[2018-08-15] MEDS: PANTOPRAZOLE 40 MG TABLET PO SCH (08:24)
[2018-08-15] MEDS: PERPHENAZINE 4 MG TAB PO SCH (08:25)
[2018-08-15] MEDS: SERTRALINE 50 MG TAB PO SCH (08:25)
[2018-08-15] MEDS: SODIUM CHLORIDE 0.9% 1,000 ML IV SCH (11:43)
--- NOTE | 2018-08-15 14:40 | PN ---
PROGRESS NOTE DATE OF SERVICE: 08/15/2018. REASON FOR FOLLOWUP: Aspiration pneumonia. INTERVAL HISTORY: The patient is currently afebrile. He is breathing comfortably. Patient denies having any chest pain, shortness of breath, no cough, no abdominal pain, no diarrhea. PHYSICAL EXAMINATION: Blood pressure 132/90 with a pulse of 72, temperature 98.1. He is 94% on room air. General description is a middle-aged male, lying in bed in no distress. RESPIRATORY SYSTEM: Unlabored breathing, clear to auscultation anteriorly. HEART: S1, S2. Regular rate and rhythm. ABDOMEN: Soft, no tenderness. LABS: Hemoglobin 11.5, white count of 5.1. Blood cultures have been negative, as well as sputum. DIAGNOSTIC IMPRESSION AND PLAN: Patient admitted to the hospital with right lobe pneumonia after a seizure activity likely aspiration pneumonia. Patient did well on the Unasyn. Currently on oral Augmentin. Continue for about a week to finish a course of therapy. Continue supportive care. MMODL / IJN: [id number] /
--- NOTE | 2018-08-15 17:43 | PN ---
PROGRESS NOTE DATE OF SERVICE: 08/15/2018 This patient had been hemodynamically stable. He was at his baseline as far as shortness of breath goes. He had minimal cough. On physical examination, his blood pressure is 138/90, respiratory rate 17, pulse rate 83, temperature 98.1. Oxygen saturation on room air is 94%. HEENT is unremarkable. Chest reveals decreased breath sounds at the bases. Cardiovascular system is in S1, S2. Abdomen is soft. There is no edema. IMPRESSION AT THIS TIME: 1. Aspiration-type pneumonia. 2. Seizure disorder. Continue oral Augmentin. Increase his activity level. Agree with discharge planning. MMODL / IJN: [id number] /
== END 2018-08-15 13:24 | disposition home or self-care (01) | DRG 178 ==
LOC: EC 12:42 → 3NMEDONC 17:52 → OBSVTOIN 08-11 16:08 → 3SCARD 08-12 22:10 → 3NMEDONC 08-12 22:10
PROVIDERS: ADMIT Family Medicine; ATTEND Family Medicine
DX: J69.0 Pneumonitis due to inhalation of food and vomit (principal); J90 Pleural effusion, not elsewhere classified; F31.9 Bipolar disorder, unspecified; E86.0 Dehydration; F20.9 Schizophrenia, unspecified; K21.9 Gastro-esophageal reflux disease without esophagitis; N40.0 Benign prostatic hyperplasia without lower urinary tract symptoms; G40.409 Other generalized epilepsy and epileptic syndromes, not intractable, without status epilepticus; R06.03 Acute respiratory distress; Z87.891 Personal history of nicotine dependence; R11.10 Vomiting, unspecified; Z79.899 Other long term (current) drug therapy
CPT/HCPCS: 36415; 71046; 71250; 74018; 80053; 80183; 82550; 82553; 83735; 85025; 87040; 93005; 94640; 95816; 96360; 96361; 99285

== ENCOUNTER 2019-06-19 08:57 | Emergency (ER) | payer BC ==
[2019-06-19 09:07] VITALS: RESP 20
--- NOTE | 2019-06-19 09:15 | ED ---
General Adult HPI - General Chief complaint: Psychiatric Symptoms Stated complaint: Mental health Time Seen by Provider: 06/19/19 09:00 Source: police, RN notes reviewed Mode of arrival: EMS Limitations: no limitations - History of Present Illness Initial comments: This is a 53-year-old male who is been brought into the emergency department with police escort. Patient's son-in-law called the police because the patient was getting aggressive. According to the son-in-law the patient has schizophrenia as well as bipolar. Patient over the last couple of days has been getting more aggressive and making statements about someone is trying to kill him. Patient today wanted to get something to drink and the son-in-law told him that he could not have any of the children's drinks so he pushed the son-in-law over and went and got anyhow and at this point the son-in-law called the police. Patient is unable to give any history. Just keeps yelling out that he wants something to eat or drink and keeps stating that someone is going to kill him - Related Data Home Medications Medication Instructions Recorded Confirmed Lisinopril [Zestril] 20 mg PO DAILY 12/29/17 06/19/19 Diazepam [Valium] 5 mg PO TID 08/10/18 06/19/19 Perphenazine [Trilafon] 8 mg PO BID@0900,1500 08/10/18 06/19/19 Perphenazine [Trilafon] 16 mg PO HS 08/11/18 06/19/19 Previous Rx's Medication Instructions Recorded OXcarbazepine [Trileptal] 450 mg PO BID #45 tab 08/24/15 Allergies Allergy/AdvReac Type Severity Reaction Status Date / Time No Known Allergies Allergy Verified 06/19/19 09:22 Review of Systems ROS Statement: Those systems with pertinent positive or pertinent negative responses have been documented in the HPI. ROS Other: All systems not noted in ROS Statement are negative. Past Medical History Past Medical History: GERD/Reflux, Prostate Disorder, Seizure Disorder History of Any Multi-Drug Resistant Organisms: None Reported Past Surgical History: No Surgical Hx Reported Past Psychological History: Bipolar, Depression, Schizophrenia Smoking Status: Former smoker Past Alcohol Use History: None Reported Past Drug Use History: Unable to Obtain - Past Family History Father Family Medical History: Unable to Obtain General Exam - General Exam Comments Initial Comments: GENERAL: Patient is well-developed and well-nourished. Patient is nontoxic and well-hydrated and is in no acute distress. ENT: Neck is soft and supple. No significant lymphadenopathy is noted. Oropharynx is clear. Moist mucous membranes. Neck has full range of motion without eliciting any pain. EYES: The sclera were anicteric and conjunctiva were pink and moist. Extraocular movements were intact and pupils were equal round and reactive to light. Eyelids were unremarkable. PULMONARY: Unlabored respirations. Good breath sounds bilaterally. No audible rales rhonchi or wheezing was noted. CARDIOVASCULAR: There is a regular rate and rhythm without any murmurs gallops or rubs. ABDOMEN: Soft and nontender with normal bowel sounds. No palpable organomegaly was noted. There is no palpable pulsatile mass. SKIN: Skin is clear with no lesions or rashes and otherwise unremarkable. NEUROLOGIC: Patient is alert and oriented unable to assess. Cranial nerves II through XII are grossly intact. Motor and sensory are also intact. Normal speech, volume and content. MUSCULOSKELETAL: Normal extremities with adequate strength and full range of motion. No lower extremity swelling or edema. No calf tenderness. LYMPHATICS: No significant lymphadenopathy is noted PSYCHIATRIC: Patient is yelling and screaming that someone is trying to kill. Patient then yells he wants something to eat and drink. Patient answers no other questions for me. Limitations: no limitations Course Vital Signs 06/19/19 09:03 Temperature 98.3 F Pulse Rate 112 H Respiratory 20 Rate Blood Pressure 147/90 O2 Sat by Pulse 99 Oximetry Medical Decision Making - Medical Decision Making EPS evaluated the patient they spoke with the psychiatrist and he agreed that the patient could be sent home safely and the psychiatrist will call and a prescription for the patient's agitation. - Lab Data Result diagrams: 06/19/19 09:16 06/19/19 09:16 Lab Results 06/19/19 06/19/19 06/19/19 Range/Units 09:16 09:16 10:30 WBC 5.5 (3.8-10.6) k/uL RBC 5.19 (4.30-5.90) m/uL Hgb 12.8 L (13.0-17.5) gm/dL Hct 41.4 (39.0-53.0) % MCV 79.7 L (80.0-100.0) fL MCH 24.6 L (25.0-35.0) pg MCHC 30.8 L (31.0-37.0) g/dL RDW 15.3 (11.5-15.5) % Plt Count 430 (150-450) k/uL Neutrophils % 70 % Lymphocytes % 23 % Monocytes % 4 % Eosinophils % 1 % Basophils % 0 % Neutrophils # 3.8 (1.3-7.7) k/uL Lymphocytes # 1.3 (1.0-4.8) k/uL Monocytes # 0.2 (0-1.0) k/uL Eosinophils # 0.1 (0-0.7) k/uL Basophils # 0.0 (0-0.2) k/uL Hypochromasia Slight Sodium 136 L (137-145) mmol/L Potassium 4.0 (3.5-5.1) mmol/L Chloride 97 L (98-107) mmol/L Carbon Dioxide 21 L (22-30) mmol/L Anion Gap 18 mmol/L BUN 14 (9-20) mg/dL Creatinine 0.80 (0.66-1.25) mg/dL Est GFR (CKD-EPI)AfAm >90 (>60 ml/min/1.73 sqM) Est GFR (CKD-EPI)NonAf >90 (>60 ml/min/1.73 sqM) Glucose 227 H (74-99) mg/dL Calcium 9.6 (8.4-10.2) mg/dL Total Bilirubin 0.8 (0.2-1.3) mg/dL AST 27 (17-59) U/L ALT 13 L (21-72) U/L Alkaline Phosphatase 67 (38-126) U/L Total Protein 8.0 (6.3-8.2) g/dL Albumin 4.6 (3.5-5.0) g/dL Urine Opiates Screen Not Detected (NotDetected) Ur Oxycodone Screen Not Detected (NotDetected) Urine Methadone Screen Not Detected (NotDetected) Ur Propoxyphene Screen Not Detected (NotDetected) Ur Barbiturates Screen Not Detected (NotDetected) U Tricyclic Antidepress Not Detected (NotDetected) Ur Phencyclidine Scrn Not Detected (NotDetected) Ur Amphetamines Screen Not Detected (NotDetected) U Methamphetamines Scrn Not Detected (NotDetected) U Benzodiazepines Scrn Detected H (NotDetected) Urine Cocaine Screen Not Detected (NotDetected) U Marijuana (THC) Screen Not Detected (NotDetected) Serum Alcohol <10 mg/dL Disposition Clinical Impression: Bipolar disorder Disposition: HOME SELF-CARE Condition: Good Instructions (If sedation given, give patient instructions): Bipolar Disorder (ED) Additional Instructions: Patient will have a medication change it will be from trilafon 8mg to 10mg 0900 and at 1500. He will continue to take 16mg at night. Is patient prescribed a controlled substance at d/c from ED?: No Referrals: Randall Sims MD [Primary Care Provider] - 1-2 days Time of Disposition: 12:36
[2019-06-19 10:30] LABS: Basophils % (A) 0 %; Eosinophils # (A) 0.1 k/uL (0-0.7); Eosinophils % (A) 1 %; HCT 41.4 % (39.0-53.0); HGB 12.8 gm/dL (13.0-17.5); Hypochromasia Slight; Lymphocytes # (A) 1.3 k/uL (1.0-4.8); Lymphocytes % (A) 23 %; MCH 24.6 pg (25.0-35.0); MCHC 30.8 g/dL (31.0-37.0); MCV 79.7 fL (80.0-100.0); Monocytes # (A) 0.2 k/uL (0-1.0); Monocytes % (A) 4 %; Neutrophils # (A) 3.8 k/uL (1.3-7.7); Neutrophils % (A) 70 %; Platelet Count 430 k/uL (150-450); RBC 5.19 m/uL (4.30-5.90); RDW 15.3 % (11.5-15.5); WBC 5.5 k/uL (3.8-10.6)
[2019-06-19 10:45] LABS: ALT 13 U/L (21-72); AST 27 U/L (17-59); African American GFR (CKD) >90 (>60 ml/min/1.73 sqM); Albumin 4.6 g/dL (3.5-5.0); Alcohol <10 mg/dL; Alkaline Phosphatase 67 U/L (38-126); Anion Gap 18 mmol/L; Blood Urea Nitrogen 14 mg/dL (9-20); Calcium 9.6 mg/dL (8.4-10.2); Carbon Dioxide 21 mmol/L (22-30); Chloride 97 mmol/L (98-107); Glucose 227 mg/dL (74-99); Sodium 136 mmol/L (137-145); Total Bilirubin 0.8 mg/dL (0.2-1.3)
[2019-06-19 12:10] LABS: Amphetamine Screen,Urine Not Detected (NotDetected); Barbiturate Screen,Urine Not Detected (NotDetected); Benzodiazepines Screen,Urine Detected (NotDetected); Cocaine Screen,Urine Not Detected (NotDetected); Methadone Screen, Urine Not Detected (NotDetected); Opiate Screen,Urine Not Detected (NotDetected); Oxycodone Screen, Urine Not Detected (NotDetected); Phencyclidine Screen,Urine Not Detected (NotDetected); Tricyclic Antidepressant,Urine Not Detected (NotDetected); Urn Cannabinoid Scrn Not Detected (NotDetected)
[2019-06-19 12:46] VITALS: BP 140/86; PULSE 92; TEMP 98.4
== END 2019-06-19 12:46 | disposition home or self-care (01) ==
LOC: EC 08:57
DX: F31.9 Bipolar disorder, unspecified (principal); F20.9 Schizophrenia, unspecified; Z87.891 Personal history of nicotine dependence; Z79.899 Other long term (current) drug therapy
CPT/HCPCS: 36415; 80053; 80306; 80320; 85025; 99285